=== PATIENT | female | born 1950 | race African-American/Black ===

== ENCOUNTER 2017-02-11 12:17 | Inpatient (IN) ==
[2017-02-11] MEDS ORDERED: ONDANSETRON 4 MG/2 ML VIAL IV STA ×2 (13:41→19:01)
[2017-02-11] MEDS ORDERED: ONDANSETRON 4 MG/2 ML VIAL ONE ×2 (13:42→17:49)
[2017-02-11] MEDS ORDERED: PANTOPRAZOLE 40 MG VIAL IV STA (13:43)
--- NOTE | 2017-02-11 13:46 | XRay Report ---
XR abdomen 2V Indication: Hematemesis Comparison: None available Findings: No free fluid or free air seen. Increased stool volume is seen in the colon. Clips are present in the abdomen from previous surgery. The bowel gas pattern otherwise appears within normal limits. No abnormal calcifications are present. No other abnormality is identified. Impression: Increased stool volume in the colon, may indicate constipation. PROCEDURE INTERPRETED AT [facility] DEPARTMENT OF RADIOLOGY Final Report Signed by: Dr. Peterson Quesada
[2017-02-11] MEDS ORDERED: PANTOPRAZOLE 40 MG VIAL IV ONE (14:36)
[2017-02-11 14:39] LABS: Basophils % 0.1 % (0.0-0.8); Eosinophils % 0.2 % (0.00-10.9); Hematocrit 42.5 VOL% (35.7-47.0); Hemoglobin 13.7 GM/DL (12.0-16.0); Immature Granulocytes % 0.6 %; Immature Granulocytes Absolute 0.08 #; Lymphocytes # 1.1 10*3/uL (1.4-4.0); Lymphocytes % 7.4 % (21.3-54.2); Mean Corpuscular HGB Conc 32.2 GM/DL (32-36); Mean Corpuscular Hemoglobin 26 PG (27-34); Mean Corpuscular Volume 81.7 FL (87-102); Mean Platelet Volume 9.8 FL (9.6-12.0); Monocytes # 0.7 10*3/uL (0.11-0.8); Monocytes % 4.8 % (1.7-12.7); Neutrophils # 12.6 10*3/uL (1.4-7.4); Neutrophils % 86.9 % (38.7-73.9); Platelet Count 381 T/CUMM (130-400); Red Cell Distribution Width 15.1 % (9.3-17.3); White Blood Count 14.5 T/CUMM (4-12)
[2017-02-11 14:47] LABS: PT Patient Result 10.2 SECS
[2017-02-11 15:15] LABS: Albumin 3.4 G/DL (3.4-5.0); Bilirubin,Total 0.6 MG/DL (0.2-1.0); Calcium 9.4 MG/DL (8.5-10.1); Osmolality,Calculated 279.4 MOS/KG (273-304); Potassium 4.1 MMOL/L (3.5-5.1); Total Protein 9.4 G/DL (6.4-8.3)
--- NOTE | 2017-02-11 16:55 | Emergency Department Note ---
Fiona Eddy Mantricia, am scribing for, and in the presence of, Rivas Greene M.D. 12:48. Jc Eddy Howard T, M.D., personally performed the services described in this documentation, ascribed by Cesar Jaimes in my presence, and it is both accurate and complete [id number] . Arrival - Arrival Chief Complaint: Nausea/Vomiting/Diarrhea Stated Complaint: Gi bleed ED Nursing Triage Note: Brought in by EMS-sent from [facility] for further evaluation of vomiting coffee ground emesis-onset 1025 this morning. Mode of Arrival: Stretcher Limitations: Language Barrier Source: RN Notes Reviewed Time Seen by Provider: 02/11/17 12:40 - History of Present Illness HPI Narrative: Pt is a 66 y/o black female arriving to ED by EMS with c/o vomiting that onset 1030 this morning. Pt was sent from [facility] for further evaluation of vomiting coffee ground emesis. She is unable to speak but is able to mumble the abdominal area that is TTP. Onset (ago): hour(s) Consistency: constant Severity: mild Severity scale (1-10): 5 Date of Last Menstrual Period: sabino Allergies/Adverse Reactions: Allergies Allergy/AdvReac Type Severity Reaction Status Date / Time No Known Allergies Allergy Verified 02/11/17 12:27 Home Medications: Home Medications Medication Instructions Recorded Confirmed Type Sertraline [Zoloft] 50 mg PEG DAILY 04/18/15 02/11/17 History amLODIPine [Norvasc] 10 mg PEG DAILY tablet 08/23/15 02/11/17 Rx Magnesium Hydroxide Susp [Milk of 30 ml PEG DAILY PRN 11/27/16 02/11/17 History Magnesia] Scopolamine 1.5 mg Patch 1 patch TRANSDERM Q3DAY 11/27/16 02/11/17 History [Transderm Scop 1.5 mg/72 hr Patch] Aspirin Chew Tab 81 mg PEG DAILY 02/11/17 02/11/17 History cloNIDine TAB [Catapres Tab] 0.3 mg PEG TID 02/11/17 02/11/17 History Review of System - Review of System 12 point system: reviewed and no additional remarkable complaints except as stated - Review of System Constitutional: Absent: chills, diaphoresis, fever Eyes: Absent: discharge, pain Head/Ears/Nose/Throat: Absent: earache, epistaxis Respiratory: Absent: cough, respiratory distress, wheezing Cardiovascular: Absent: chest pain, palpitations, dyspnea on exertion Gastrointestinal: Present: abdominal pain, nausea, vomiting, diarrhea Genitourinary female: Absent: abnormal menses Musculoskeletal: Absent: arm pain, back pain, leg pain, neck pain Skin: Absent: rash, lesions Neurological: Absent: headache, weakness Medical,Surgical,& Family Hx - Medical History Cardio: History of: Hypertension Psychological: History of: Depression Neurology: History of: Cerebrovascular Accident (CVA 1997,2002,2009), Vertigo No history of: Seizures HEENT: History of: Eye Problem (RIGHT EYE LID DROOP), Dental Problems (BLEEDING GUMS,HALLOTOSIS) Endocrine: History of: Dyslipidemia Rheumatology: History of;: Rheumatoid Arthritis Respiratory: History of: Respiratory Problems (SNORES) Genitourinary: History of: Recurring Urinary Tract Infections, Problems ( OCASSIONAL INCONTINENT OF URINE) Gastrointestinal: History of: GI Problems (PEG FOR DYSPHAGIA UNTIL 2010) - Surgical History Thoracic Surgeries: Patient denies;: Kidney (Renal Surgery), Lithotripsy, Nephrectomy Neurologic Surgeries: Patient denies: Neurologic Surgery Abdominal Surgeries: Surgical HX of: Abdominal Surgery, Cholecystectomy Reproductive Surgeries: Patient denies;: Cystoscopy, Genitourinary Surgery - Family History Family History: Reports;: Family Cancer, Family Diabetes, Family Heart Disease, Family Hypertension, Family Stroke - Social History Smoking Status: Never smoker Frequency of Alcohol Use: None Type of Drug Use: None Exam Vital Signs: Vital Signs Temperature 99.0 F 02/11/17 12:22 Pulse Rate 118 H 02/11/17 16:00 Respiratory Rate 20 02/11/17 16:00 Blood Pressure 176/93 02/11/17 16:00 O2 Sat by Pulse Oximetry 100 02/11/17 16:00 - General General appearance: alert, in no apparent distress - Head Head exam: Present: atraumatic, normocephalic, normal inspection - Eye Eye exam: Present: normal appearance, PERRL, EOMI - ENT ENT exam: Present: normal exam, normal oropharynx, mucous membranes moist, TM's normal bilaterally, normal external ear exam - Neck Neck exam: Present: normal inspection, full ROM, trachea midline. Absent: tenderness - Chest Chest inspection: Present: normal inspection, symmetric chest wall rise. Absent : tenderness - Respiratory Respiratory exam: Present: normal lung sounds bilaterally - Cardiovascular Cardiovascular exam: Present: regular rate, normal rhythm, normal heart sounds - Abdominal Exam Abdominal exam: Present: soft, tenderness, normal bowel sounds. Absent: distention, guarding, rebound - Extremities Exam Extremities exam: Present: normal inspection, full ROM, normal capillary refill. Absent: tenderness, pedal edema - Back Exam Back exam: Present: normal inspection, full ROM. Absent: tenderness - Neurological Exam Neurological exam: Present: alert, oriented X3, CN II-XII intact, normal gait - Psychiatric Psychiatric exam: Present: normal affect, normal mood - Skin Skin exam: Present: warm, dry, intact, normal color Course Course Narrative: Medical decision making: Patient appears stable with stable H&H however with history of probable blood in emesis we will recommend admission overnight with GI evaluation in the morning. Contacted hospitalist for evaluation Results - Labs CBC & BMP: 02/11/17 14:22 02/11/17 14:22 Lab Results: I have reviewed the patients labs - Impressions INR 1.0 - Diagnostic Findings Procedure: Abdominal x-ray: report reviewed by me (no acute) Disposition Clinical Impression: Upper gastrointestinal hemorrhage, Coffee ground emesis Case discussed with: patient, patient's family Disposition: Still a Patient Condition: Stable Time of Disposition: 16:54
[2017-02-11] MEDS ORDERED: ONDANSETRON 4 MG/2 ML VIAL IV PRN (17:30)
[2017-02-11] MEDS ORDERED: ACETAMINOPHEN 325 MG TABLET PO PRN (17:30)
--- NOTE | 2017-02-11 17:45 | Hospitalist History & Physical ---
Assessment and Plan (1) Coffee ground emesis Status: Acute Assessment and plan: Admit to monitored bed. Consult GI. Keep npo. IVF hydration. Monitor patient status. Current Visit: Yes (2) Hypertension Status: Chronic Assessment and plan: Home medications restarted. Routine vitals ordered. Current Visit: No (3) History of stroke Status: Chronic Assessment and plan: Pt. is nonverbal due to strokes. Completely bedbound. Current Visit: No (4) Debility Status: Acute Current Visit: No (5) Upper gastrointestinal hemorrhage Status: Acute Current Visit: Yes History of Present Illness Chief complaint: gi bleeding History of present illness: Ms. John is a 66 year old black female with a history of several strokes, renal issues, electrolyte imbalances, and hypertension that was brought in via EMS from [facility] for evaluation of nausea and coffee ground emesis. Pt. is nonverbal but daughter is present at bedside. She states senior care notified her of her mom's condition. Pt. is able to nod yes or no and confirms pain to abdominal. In ED, pt noted to have WBC of 14.5, CXR and UA pending. Pt. will be admitted to the hospitalist service for further evaluation and treatment. This patient's care was discussed with Dr. Quan. Home Medications Medication Instructions Recorded Confirmed Type Sertraline [Zoloft] 50 mg PEG DAILY 04/18/15 02/11/17 History amLODIPine [Norvasc] 10 mg PEG DAILY tablet 08/23/15 02/11/17 Rx Magnesium Hydroxide Susp [Milk of 30 ml PEG DAILY PRN 11/27/16 02/11/17 History Magnesia] Scopolamine 1.5 mg Patch 1 patch TRANSDERM Q3DAY 11/27/16 02/11/17 History [Transderm Scop 1.5 mg/72 hr Patch] Aspirin Chew Tab 81 mg PEG DAILY 02/11/17 02/11/17 History cloNIDine TAB [Catapres Tab] 0.3 mg PEG TID 02/11/17 02/11/17 History Allergies Allergy/AdvReac Type Severity Reaction Status Date / Time No Known Allergies Allergy Verified 02/11/17 12:27 Medical,Surgical,& Family Hx - Medical History Cardio: History of: Hypertension Psychological: History of: Depression Neurology: History of: Cerebrovascular Accident (CVA 1997,2002,2009), Vertigo No history of: Seizures HEENT: History of: Eye Problem (RIGHT EYE LID DROOP), Dental Problems (BLEEDING GUMS,HALLOTOSIS) Endocrine: History of: Dyslipidemia Rheumatology: History of;: Rheumatoid Arthritis Respiratory: History of: Respiratory Problems (SNORES) Genitourinary: History of: Recurring Urinary Tract Infections, Problems ( OCASSIONAL INCONTINENT OF URINE) Gastrointestinal: History of: GI Problems (PEG FOR DYSPHAGIA UNTIL 2010) - Surgical History Thoracic Surgeries: Patient denies;: Kidney (Renal Surgery), Lithotripsy, Nephrectomy Neurologic Surgeries: Patient denies: Neurologic Surgery Abdominal Surgeries: Surgical HX of: Abdominal Surgery, Cholecystectomy Reproductive Surgeries: Patient denies;: Cystoscopy, Genitourinary Surgery - Family History Family History: Reports;: Family Cancer, Family Diabetes, Family Heart Disease, Family Hypertension, Family Stroke - Social History Smoking Status: Never smoker Frequency of Alcohol Use: None Type of Drug Use: None Lives With:: senior care Functional capacity: bed bound ROS unobtainable: other (Pt. is nonverbal) - Gastrointestinal Gastrointestinal: Present: abdominal pain (facial expressions) Exam - Constitutional Vitals: Period Temp Pulse Resp BP Sys/Shepard Pulse Ox Last 24 Hr 99.0 F-99.0 F 108-128 18-22 127-197/90-101 99-100 General appearance: no acute distress, over weight - Head Head exam: Present: normal inspection, normocephalic - Eye Eye exam: Present: EOMI. Absent: periorbital swelling Pupils: Present: PAZ. Absent: dilated - Respiratory Respiratory exam: Present: rhonchi - Cardiovascular Cardiovascular exam: Present: tachycardia - GI/Abdominal GI/Abdominal exam: Present: normal bowel sounds, tenderness, other (peg tube) - Extremities Exam Extremities exam: Present: normal capillary refill. Absent: full ROM, edema - Neurological Exam Neurological exam: Present: alert, motor sensory deficit - Psychiatric Psychiatric exam: Present: normal affect, normal mood - Skin Skin exam: Present: normal color, warm, dry Results - Labs CBC & BMP: 02/11/17 14:22 02/11/17 14:22 Lab Results: I have reviewed the past 24 hour labs
[2017-02-11] MEDS: PANTOPRAZOLE 40 MG VIAL IV SCH (20:56)
[2017-02-11] MEDS: DEXTROSE 5% NACL 0.9% 1,000 ML IV SCH (21:19)
[2017-02-12 00:59] LABS: Apearance,Urine Slightly Hazy (Clear); Bilirubin,Urine Negative (Negative); Blood, Urine Negative (Negative); Glucose,Urine (UA) Negative (Negative); Ketones,Urine Negative (Negative); Mucus,Urine Occasional /LPF (Occasional); Nitrite,Urine Negative (Negative); Protein,Urine 30 MG/DL; RBC,Urine 1 /HPF (0-4); Urine Color Yellow (Yellow); Urine Urobilinogen < 2.0 EU/DL (0.2-1.0); WBC,Urine 2 /HPF (0-6)
[2017-02-12 06:09] LABS: Basophils % 0.2 % (0.0-0.8); Eosinophils # 0.1 10*3/uL (0.0-0.87); Eosinophils % 1.2 % (0.00-10.9); Hematocrit 34.2 VOL% (35.7-47.0); Immature Granulocytes % 0.5 %; Immature Granulocytes Absolute 0.04 #; Lymphocytes # 2.4 10*3/uL (1.4-4.0); Lymphocytes % 26.7 % (21.3-54.2); Mean Corpuscular HGB Conc 31.6 GM/DL (32-36); Mean Corpuscular Hemoglobin 26 PG (27-34); Mean Corpuscular Volume 82.8 FL (87-102); Mean Platelet Volume 10.2 FL (9.6-12.0); Monocytes # 0.9 10*3/uL (0.11-0.8); Monocytes % 9.9 % (1.7-12.7); Neutrophils # 5.4 10*3/uL (1.4-7.4); Neutrophils % 61.5 % (38.7-73.9); Platelet Count 373 T/CUMM (130-400); Red Cell Distribution Width 15.4 % (9.3-17.3)
[2017-02-12 06:11] LABS: Hemoglobin 10.8 GM/DL (12.0-16.0); Red Blood Count 4.13 MC/CUMM (3.8-5.5); White Blood Count 8.8 T/CUMM (4-12)
[2017-02-12 06:27] LABS: Risk Ratio 2.47; VLDL CHOLESTEROL 13.2 MG/DL
--- NOTE | 2017-02-12 06:31 | XRay Report ---
History: Pneumonia Date: 02/11/2017 Study: Chest x-ray single view portable Comparison exam: April 21, 2015 The cardiomediastinal silhouette is unremarkable. The pulmonary vasculature is not engorged. There is no pleural effusion. There is some strandy subsegmental atelectasis in the lung bases. There is mild thoracic spondylosis. Surgical clips overlie the right upper abdomen, suggesting prior cholecystectomy. Impression: Mild platelike atelectasis in the lung bases PROCEDURE INTERPRETED AT [facility] DEPARTMENT OF RADIOLOGY Final Report Signed by: Dr. Berta Bruno
[2017-02-12 06:35] LABS: Calcium 8.8 MG/DL (8.5-10.1); Osmolality,Calculated 281.3 MOS/KG (273-304); Potassium 4.7 MMOL/L (3.5-5.1); Thyroid Stimulating Hormone 0.531 uIU/ml (0.358-3.74)
--- NOTE | 2017-02-12 07:39 | EKG Report ---
Stationary ECG Study [facility] Test Date: 02/12/2017 7:24:41 AM Pat Name: SHANI ESTEVEZ Department: Room: 524 Gender: F [employer] Work[employer]: : 1950 Requested by: Nash Mcgraw Order Number: [id number] Reading MD: MADISON MONTEJO Intervals [place] Rate: 65 P: 60 [place]: 154 QRS: 28 QRSD: 70 T: 49 QT: 405 QTc: 416 Interpretive Statements SINUS RHYTHM Electronically Signed On 02-12-17 16:59:27 CDT by MADISON MONTEJO [email or web address]
[2017-02-12] MEDS: SERTRALINE 50 MG TABLET PEG SCH (08:11)
[2017-02-12] MEDS: PANTOPRAZOLE 40 MG VIAL IV SCH ×2 (08:11→21:20)
[2017-02-12] MEDS: amLODIPine 10 MG TABLET PEG SCH (08:11)
--- NOTE | 2017-02-12 09:03 | Hospitalist Progress Note ---
<Jayro Mayer - Last Filed: 02/12/17 09:06> Assessment and Plan (1) Coffee ground emesis Status: Acute Current Visit: Yes (2) Upper gastrointestinal hemorrhage Status: Acute Assessment and plan: No further episodes of coffee-ground emesis noted; will keep NPO; awiting GI evaluation. Current Visit: Yes (3) Acute kidney injury Status: Acute Assessment and plan: BUN/Creatinine normalized at 15/1.10. Current Visit: No (4) Hypernatremia Status: Acute Assessment and plan: Sodium level normalized at 141; will continue to monitor. Current Visit: No Hospitalist: Subjective Interval history: Patient seen and examined; no significant overnight events noted. No further episodes of coffee ground emesis noted. Awaiting GI consult. Exam - Constitutional Vitals: Period Temp Pulse Resp BP Sys/Shepard Pulse Ox Last 24 Hr 97.7 F-100.1 F 75-123 16-22 117-169/59-108 96-100 General appearance: normal weight, no acute distress - Head Head exam: Present: normal inspection, normocephalic, atraumatic - Eye Eye exam: Present: EOMI. Absent: conjunctival injection Pupils: Present: PAZ, normal accommodation - ENT ENT exam: Present: normal exam, normal external ear exam, normal oropharynx - Neck Neck exam: Absent: lymphadenopathy, meningismus, tenderness, thyromegaly - Respiratory Respiratory exam: Present: wheezes - Cardiovascular Cardiovascular exam: Present: regular rate and rhythm. Absent: diastolic murmur , gallop, JVD, rubs, systolic murmur, tachycardia - GI/Abdominal GI/Abdominal exam: Present: normal bowel sounds, soft, other (PEG tube in place) - Extremities Exam Extremities exam: Present: edema (Trace) - Back Exam Back exam: Present: normal inspection - Neurological Exam Neurological exam: Present: alert, altered - Psychiatric Psychiatric exam: Present: normal affect, normal mood - Skin Skin exam: Present: normal color, warm, dry Results - Labs CBC & BMP: 02/12/17 05:09 02/12/17 05:09 Lab Results: I have reviewed the past 24 hour labs <Jillian Michel - Last Filed: 02/12/17 12:59> Hospitalist: Subjective Interval history: Patient was lying in bed snoring away. Exam - Constitutional Vitals: Period Temp Pulse Resp BP Sys/Shepard Pulse Ox Last 24 Hr 97.0 F-100.1 F 69-123 16-22 103-169/59-108 96-100 Results - Labs CBC & BMP: 02/12/17 05:09 02/12/17 05:09
[2017-02-12] MEDS: DEXTROSE 5% NACL 0.9% 1,000 ML IV SCH ×2 (11:06→23:43)
[2017-02-12] MEDS ORDERED: GLUCAGON 1 MG VIAL IM PRN (13:25)
[2017-02-12] MEDS ORDERED: DEXTROSE 50% 25 GM/50 ML VIAL IV PRN (13:25)
--- NOTE | 2017-02-12 14:36 | Gastrointestinal Consult Note ---
Assessment and Plan (1) Coffee ground emesis Status: Acute Assessment and plan: This patient has a recent history of coffee-ground emesis which I suspect may be due to either Yulia-Wallace tear, or contralateral ulceration of the stomach due to the recent inflatable-bulb type PEG tube placed back in November. Peptic ulcer disease and gastritis remain in the differential as does esophagitis and duodenitis. Will assess with upper endoscopy tomorrow if the family agrees. Risks of the above procedure include and are not limited to: Bleeding, infection, perforation, cardiac and pulmonary compromise. In the meantime we will cover this patient with Protonix twice daily. We can start to reuse the PEG tube at this time given the lack of heme noted on flushing of the stomach. The patient does need to be n.p.o. after midnight tonight for upper endoscopy tomorrow. Further recommendations post upper endoscopy. Current Visit: Yes (2) Acute posthemorrhagic anemia Status: Acute Assessment and plan: Patient's hematocrit has certainly dropped between 42% and 34%-- certainly some of this is due to correction of her dehydration. Hopefully we will be able to identify an upper GI bleeding source during the upper endoscopy to occur tomorrow. This may business change manager by having the patient start some attempting medication versus acid blocking medication versus identification a Yulia-Wallace tear that may be spurred by a gastroenteritis. If the daughter agrees, we will schedule this for tomorrow morning at 0700. Risks and benefits were outlined above. 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 Status post multiple strokes leading to difficulty with swallowing. She is continue needing this feeding tube since 2014. If the PEG tube presently requires replacement we will strongly consider placing another "mushroom" type PEG tube which will certainly last longer than the current time she has now which tends to have a life of about 6 months, before replacement needed. Current Visit: No History of Present Illness Chief complaint: Coffee-ground emesis and drop in hematocrit from 42 -->34% History of present illness: Ms. John is a 66 year old female who has a history of multiple strokes and a scalp hematoma previously seen after her INR became supratherapeutic and she had some dysphasia with need for PEG tube placement back on 7/24/15. The PEG tube was placed without difficulty at that time during reversal of her anticoagulation and the patient has had several others since that time. The most recent of these has been replaced on 11/27/16 after the PEG tube degraded. This PEG tube has done well but was the inflatable type and the patient is admitted at this time with coffee-ground emesis and a drop in her hematocrit from 42.5% down to 34.2% between 02/11/17 and now. Nursing staff states that the stomach was flushed with 60 mls of water and no gross evidence of heme was noted in the stomach at this time. The patient had been taking some aspirin but this apparently is her only anticoagulant. She is nonconversant and does not answer questions, her daughter is not at the bedside. Hematemesis have been [facility] at the [facility] prior to her being sent over from their institution. White blood cell count has improved from 14.5-8.8 from yesterday at 12 PM to present recheck at 8 AM. Her INR was noted to be 1.0 this admission. She is a DNR. She can resume tube feedings at this time, we will perform upper endoscopy to look for source for the hematemesis tomorrow. We may need to replace the PEG tube with a non-balloon type if contralateral compression ulceration is noted in the stomach. We do not have any additional history Home Medications Medication Instructions Recorded Confirmed Type Sertraline [Zoloft] 50 mg PEG DAILY 04/18/15 02/12/17 History amLODIPine [Norvasc] 10 mg PEG DAILY tablet 08/23/15 02/12/17 Rx Magnesium Hydroxide Susp [Milk of 30 ml PEG DAILY PRN 11/27/16 02/12/17 History Magnesia] Scopolamine 1.5 mg Patch 1 patch TRANSDERM Q3DAY 11/27/16 02/12/17 History [Transderm Scop 1.5 mg/72 hr Patch] Aspirin Chew Tab 81 mg PEG DAILY 02/11/17 02/12/17 History cloNIDine TAB [Catapres Tab] 0.3 mg PEG TID 02/11/17 02/12/17 History Allergies Allergy/AdvReac Type Severity Reaction Status Date / Time No Known Allergies Allergy Verified 02/11/17 12:27 Medical,Surgical,& Family Hx - Medical History Cardio: History of: Hypertension Psychological: History of: Depression Neurology: History of: Cerebrovascular Accident (CVA 1997,2002,2009), Vertigo No history of: Seizures HEENT: History of: Eye Problem (RIGHT EYE LID DROOP), Dental Problems (BLEEDING GUMS,HALLOTOSIS) Endocrine: History of: Dyslipidemia Rheumatology: History of;: Rheumatoid Arthritis Respiratory: History of: Respiratory Problems (SNORES) Genitourinary: History of: Recurring Urinary Tract Infections, Problems ( OCASSIONAL INCONTINENT OF URINE) Gastrointestinal: History of: GI Problems (PEG FOR DYSPHAGIA UNTIL 2010) - Surgical History Thoracic Surgeries: Patient denies;: Kidney (Renal Surgery), Lithotripsy, Nephrectomy Neurologic Surgeries: Patient denies: Neurologic Surgery Abdominal Surgeries: Surgical HX of: Abdominal Surgery, Cholecystectomy Reproductive Surgeries: Patient denies;: Cystoscopy, Genitourinary Surgery - Family History Family History: Reports;: Family Cancer, Family Diabetes, Family Heart Disease, Family Hypertension, Family Stroke - Social History Smoking Status: Never smoker Frequency of Alcohol Use: None Type of Drug Use: None ROS unobtainable: other (Post stroke aphasia) Exam - Constitutional Vitals: Period Temp Pulse Resp BP Sys/Shepard Pulse Ox Last 24 Hr 97.0 F-100.1 F 69-123 16-22 103-169/59-108 96-100 General appearance: over weight Exam: Constitutional: Well-developed, well-nourished, somnolent but in no acute distress Head and face: Head: Normocephalic atraumatic Eyes: Conjunctiva without injection, no gross scleral icterus, pupils equal and round bilaterally Ears: Unable to completely assess, the patient does react to loud noises Nose: External appearance is normal, nares patent Mouth: Oral mucous membranes somewhat dry and tacky with dental caries but no gross erosion Neck: Normal appearance, no masses or tenderness, trachea midline Thyroid: Gland midline and appropriate size for age Respiratory: Normal respiratory effort, clear to auscultation without wheezes, rhonchi or rales Cardiovascular: Regular rate and rhythm, normal S1, S2, the exam is without rubs, murmurs or gallops. Gastrointestinal: PEG tube noted in left upper abdomen, mild nonfocal tenderness to deep palpation, PEG tube site does not have any erythema, spends well does not appear to have any drainage stomach tone normal without rigidity or guarding, no masses present, no hepatomegaly, no spleen tip felt. No rectal exam obtained. Lymphatic: Neck without adenopathy, axilla without lymphadenopathy present Musculoskeletal: Right and left lower extremities with muscular wasting Skin and subcutaneous tissue: No rashes or ulcerations noted except at the sacrum, normal skin turgor, digits and nails without clubbing/cyanosis/ deformities. Neurologic: Patient somnolent and does not answer questions or follow commands. No further examination could be done. Psychiatric: No further examination could be done. Results - Labs CBC & BMP: 02/12/17 05:09 02/12/17 05:09
[2017-02-12] MEDS ORDERED: SODIUM CHLORIDE 0.9% 250 ML IV ONE (15:37)
[2017-02-13 06:42] LABS: Basophils % 0.5 % (0.0-0.8); Eosinophils # 0.3 10*3/uL (0.0-0.87); Eosinophils % 4.9 % (0.00-10.9); Hematocrit 37.5 VOL% (35.7-47.0); Hemoglobin 11.4 GM/DL (12.0-16.0); Immature Granulocytes % 0.3 %; Immature Granulocytes Absolute 0.02 #; Lymphocytes # 2.3 10*3/uL (1.4-4.0); Lymphocytes % 38.7 % (21.3-54.2); Mean Corpuscular HGB Conc 30.4 GM/DL (32-36); Mean Corpuscular Hemoglobin 26 PG (27-34); Mean Corpuscular Volume 84.7 FL (87-102); Mean Platelet Volume 10.2 FL (9.6-12.0); Monocytes # 0.6 10*3/uL (0.11-0.8); Monocytes % 9.6 % (1.7-12.7); Neutrophils # 2.7 10*3/uL (1.4-7.4); Platelet Count 325 T/CUMM (130-400); Red Blood Count 4.43 MC/CUMM (3.8-5.5)
[2017-02-13 07:07] LABS: Calcium 8.6 MG/DL (8.5-10.1); Osmolality,Calculated 278.4 MOS/KG (273-304); Potassium 4.5 MMOL/L (3.5-5.1)
[2017-02-13 07:24] LABS: Magnesium 1.9 MG/DL (1.8-2.4); Phosphorous 3.1 MG/DL (2.5-4.9)
[2017-02-13] MEDS ORDERED: LIDOCAINE 2% 5 ML VIAL ONE (08:35)
[2017-02-13] MEDS ORDERED: PROPOFOL 200 MG/20 ML VIAL IV ONE (08:35)
--- NOTE | 2017-02-13 08:42 | Anesthesia Post-Op ---
Anesthesia Post OP - Post Ansesthetic Evaluation Patient seen in post op: Yes Resp: within normal limits CV: within normal limits Mental: within normal limits Temp: within normal limits Hoyc-Bx-Nrsaqingm: within normal limits Nausea and Vomiting: within normal limits Pain: within normal limits
--- NOTE | 2017-02-13 08:42 | Operative Note ---
Date of procedure: 02/13/17 Pre-op diagnosis: Hematemesis, hematocrit from 42% to 34%, PEG Post-op diagnosis: other (This patient has a 7 cm long segment of erosive esophagitis noted in the distal esophagus, LA class C. Patient has a 5 cm hiatal hernia, mild punctate erosions were noted near the pyloric channel in the antrum as well. A scant amount of retained fluid was noted in the stomach, gastroparesis may be playing a minimal role here.) Procedure: PROCEDURE: Esophagogastroduodenoscopy (EGD) REFERRING PHYSICIAN: Jillian Michel MD INDICATIONS: Hematemesis with drop in hematocrit from 42-34% now up to 37% spontaneously in a patient with a PEG tube the prior H&P was reviewed and interrim changes are as noted: No change from GI consultation yesterday ENDOSCOPIST: Kunal Robins MD ENDOSCOPE: [employer] Video 100 System upper endoscope ASA CLASS: 3 EXAM: CV: regular rate and rhythm respiratory: Clear without wheezes abdominal: active bowel sounds MEDICATION: Per nursing anesthesia protocol, see their notes PROCEDURE: After discussion of the potential risks and benefits of upper endoscopy, the informed consent was obtained. The patient was then placed in the left lateral decubitus position where sedation was achieved as noted above. Esophageal intubation was performed without difficulty, and the endoscope was advanced through the esophagus, stomach and duodenum. A slow withdrawal was then performed with retroflexion in the stomach for careful inspection of the incisura angularis, fundus and cardia. The scope was then returned to a neutral position and withdrawn through the esophagus. The patient tolerated the procedure well and without complication. BIOPSIES: None obtained PHOTOGRAPHS: Obtained FINDINGS: Hypopharynx and Larynx: Normal Esohagoscopy Upper and middle thirds: Normal Lower third LA class C erosive esophagitis between 28 and 35 cm Esophogastric junctions: LA class C erosive esophagitis between 28 and 35 cm Gastroscopy: Cardia/Fundus: 5 cm hiatal hernia noted Body: The PEG tube balloon was noted here there really was no erosive changes directly across from it from pressure necrosis as was suspected , there were some erosions noted down further in the antrum, small pool of retrained green fluid noted here as well. Antrum and pylorus a few small punctate erosions noted here, some mild gastritis thought to be another source of blood loss Duodenoscopy: Bulb Normal Second and third portions: Normal IMPRESSION: This patient has a 7 cm long segment of erosive esophagitis noted in the distal esophagus, LA class C. Patient has a 5 cm hiatal hernia, mild punctate erosions were noted near the pyloric channel in the antrum as well. A scant amount of retained fluid was noted in the stomach, gastroparesis may be playing a minimal role here. RECOMMENDATIONS: Follow up for biopsy results in 1-2 weeks by phone [phone] Continue anti-gastroesophageal reflux measures (avoid carbonated and acidic beverages, avoid eating within 2 hours of bedtime, avoid tight fitting clothing , and elevate the front bed posts 6 inches prior to sleeping. Suggest use of twice daily PPIs, prescription written for Prevacid Solutab's 30 mg twice daily to be used with the PEG tube, from my standpoint the patient can be discharged at this time. Nursing staff has not detected any residuals. If high residuals are noted at the half-way would suggest sending the patient back for gastric emptying study. Kunal Robins MD COPY TO: Jillian Michel MD Anesthesia: MAC Surgeon / Physician: Kunal Robins Estimated blood loss: minimal Specimens: none sent Condition: stable Disposition: post procedure unit ([facility]) Results - Labs CBC & BMP: 02/13/17 06:01 02/13/17 06:01 Discharge Plan - Discharge Medications No Action Sertraline [Zoloft] 50 mg PEG DAILY amLODIPine [Norvasc] 10 mg PEG DAILY tablet Scopolamine 1.5 mg Patch [Transderm Scop 1.5 mg/72 hr Patch] 1 patch TRANSDERM Q3DAY Magnesium Hydroxide Susp [Milk of Magnesia] 30 ml PEG DAILY PRN PRN Reason: Constipation Aspirin Chew Tab 81 mg PEG DAILY cloNIDine TAB [Catapres Tab] 0.3 mg PEG TID - Follow Up or Referral - Forms/Instructions
--- NOTE | 2017-02-13 08:51 | Gastrointestinal Progress Note ---
Assessment and Plan (1) Coffee ground emesis Status: Acute Assessment and plan: This patient has a recent history of coffee-ground emesis which I suspect may be due to either Yulia-Wallace tear, or contralateral ulceration of the stomach due to the recent inflatable-bulb type PEG tube placed back in November. Peptic ulcer disease and gastritis remain in the differential as does esophagitis and duodenitis. Will assess with upper endoscopy tomorrow if the family agrees. Risks of the above procedure include and are not limited to: Bleeding, infection, perforation, cardiac and pulmonary compromise. In the meantime we will cover this patient with Protonix twice daily. We can start to reuse the PEG tube at this time given the lack of heme noted on flushing of the stomach. The patient does need to be n.p.o. after midnight tonight for upper endoscopy tomorrow. Further recommendations post upper endoscopy. 02/13/17--Findings of upper endoscopy include the following: This patient has a 7 cm long segment of erosive esophagitis noted in the distal esophagus, LA class C. Patient has a 5 cm hiatal hernia, mild punctate erosions were noted near the pyloric channel in the antrum as well. A scant amount of retained fluid was noted in the stomach, gastroparesis may be playing a minimal role here. I have written prescriptions to [facility] Solutab's via the PEG tube twice daily for 1 month and then once a day after that. This should protect her esophagus and stomach against the current acid load. In my opinion she can be discharged from the hospital at this time. She does not have enough residuals to consider doing gastric emptying study yet but if these issues become recurrent we may consider this for the future. The PEG tube did not need to be changed out there was not contralateral wall ulceration noted across from the bulb. Current Visit: Yes (2) Acute posthemorrhagic anemia Status: Acute Assessment and plan: Patient's hematocrit has certainly dropped between 42% and 34%-- certainly some of this is due to correction of her dehydration. Hopefully we will be able to identify an upper GI bleeding source during the upper endoscopy to occur tomorrow. This may mold changer by having the patient start some attempting medication versus acid blocking medication versus identification a Yulia-Wallace tear that may be spurred by a gastroenteritis. If the daughter agrees, we will schedule this for tomorrow morning at 0700. Risks and benefits were outlined above. 02/13/17--The patient's hematocrit improved to 37% spontaneously. She is safe to return [facility] the [facility] at this time in my opinion. Prescription for Prevacid has been written left on the front of the chart. 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 Status post multiple strokes leading to difficulty with swallowing. She is continue needing this feeding tube since 2014. If the PEG tube presently requires replacement we will strongly consider placing another "mushroom" type PEG tube which will certainly last longer than the current time she has now which tends to have a life of about 6 months, before replacement needed. 02/13/17--this patient will continue to need the PEG tube as her source of nutrition, she continues to have dysphagia from her CVA that will require ongoing alternate feeding routes for nutrition and hydration medication needs. Current Visit: No Gastroenterology - PN: Subj Interval history: No new complaints, the patient appears to be stable. Her hematocrit actually increased up to 37% spontaneously. Upper endoscopy demonstrates the following: This patient has a 7 cm long segment of erosive esophagitis noted in the distal esophagus, LA class C. Patient has a 5 cm hiatal hernia, mild punctate erosions were noted near the pyloric channel in the antrum as well. A scant amount of retained fluid was noted in the stomach, gastroparesis may be playing a minimal role here. Exam (Progress Note) - Constitutional Vitals: Period Temp Pulse Resp BP Sys/Shepard Pulse Ox Last 24 Hr 96.8 F-98.6 F 49-69 18-20 101-141/56-74 94-100 General appearance: no acute distress - Head Head exam: Present: normocephalic, atraumatic - Respiratory Respiratory exam: Present: clear to auscultation bilaterally. Absent: stridor, wheezes - Cardiovascular Cardiovascular exam: Present: regular rate and rhythm - GI/Abdominal GI/Abdominal exam: Present: normal bowel sounds, distended, soft. Absent: guarding, tenderness, rebound - Extremities Exam Extremities exam: Present: edema - Neurological Exam Neurological exam: Present: altered (Somnolent) - Psychiatric Psychiatric exam: Present: flat affect Results - Labs CBC & BMP: 02/13/17 06:01 02/13/17 06:01
[2017-02-13] MEDS: amLODIPine 10 MG TABLET PEG SCH ×2 (10:02→10:03)
[2017-02-13] MEDS: PANTOPRAZOLE 40 MG VIAL IV SCH (10:02)
[2017-02-13] MEDS: SERTRALINE 50 MG TABLET PEG SCH (10:02)
[2017-02-13] MEDS: DEXTROSE 5% NACL 0.9% 1,000 ML IV SCH (11:49)
--- NOTE | 2017-02-13 12:05 | Discharge Summary ---
<Shahla Ballard - Last Filed: 02/13/17 11:59> Hospital Course - Hospital Course Hospital Course: Ms. John is a 66-year-old -[place] female with history of CVA, hypertension, bedbound patient in the senior living admitted by the hospitalist service on 02/11/2017 with coffee-ground emesis. She was kept n.p.o. with IV hydration and her status was monitored. Dr. Robins from gastroenterology was consulted and he took the patient this morning, 02/13/2017, for EGD. He found some erosive esophagitis, 5 cm hiatal hernia, mild punctate erosions noted near the pyloric channel and in the antrum wall as well. He recommended sending back to the senior living with Prevacid Solutab's via PEG tube twice daily for 1 month and then once a day after that. This will help protect her esophagus and stomach against the acid load. Her PEG tube did not need to be changed out. it was in good shape and there were no noted wall ulcerations near the bulb. He stated there was a scant amount of retained fluid noted in the stomach and gastroparesis may play a minimal role. He recommended continuing her tube feeds and to check residuals periodically. If she continues to have high residuals then he will need to see her in clinic for gastric emptying study. Patient has had no further bleeding and her H&H is stable. She can be transferred back to the senior living today. Patient's case was coordinated with Dr. Michel the hospitalist and Dr. Robins the provider relations consultant, nursing. Case coordination, chart review, and discharge paperwork took approximately 32 minutes. - Time spent with patient Time with patient DS: Greater than 30 minutes Discharge Plan - Discharge Data Disposition: Disch/Xfer to Snf - Discharge Medications New Lansoprazole Odt Tab [Prevacid Solutab] 30 mg PO BID #60 tablet Acetaminophen Tab [Tylenol Tab] 650 mg PO Q4H PRN #0 tablet PRN Reason: Fever, Headache, Mild Pain Continue Sertraline [Zoloft] 50 mg PEG DAILY amLODIPine [Norvasc] 10 mg PEG DAILY tablet Scopolamine 1.5 mg Patch [Transderm Scop 1.5 mg/72 hr Patch] 1 patch TRANSDERM Q3DAY Magnesium Hydroxide Susp [Milk of Magnesia] 30 ml PEG DAILY PRN PRN Reason: Constipation cloNIDine TAB [Catapres Tab] 0.3 mg PEG TID Discontinued Aspirin Chew Tab 81 mg PEG DAILY - Follow Up or Referral - Forms/Instructions Exam - Constitutional Vitals: Period Temp Pulse Resp BP Sys/Shepard Pulse Ox Last 24 Hr 96.8 F-98.6 F 49-58 16-20 93-141/49-74 94-100 Discharge Results Procedures and tests throughout hospitalization: Pending Orders 02/13/17 11:04 Blood Culture Stat Labs on day of discharge: Labs from last 24 hours 02/13/17 02/13/17 02/13/17 10:43 07:19 06:01 WBC RBC Hgb Hct MCV MCH MCHC RDW Plt Count MPV Neut % (Auto) Lymph % (Auto) Tillman % (Auto) Eos % (Auto) Baso % (Auto) Neut # (Auto) Lymph # (Auto) Tillman # (Auto) Eos # (Auto) Baso # (Auto) Immature Gran % Nucleated RBC % Immature Gran # Nucleated RBCs # Sodium Potassium Chloride Carbon Dioxide Anion Gap BUN Creatinine GFR Calculation BUN/Creatinine Ratio Glucose POC Glucose 95 110 H Calculated Osmolality Calcium Phosphorus 3.1 Magnesium 1.9 Prealbumin 22.0 02/13/17 02/13/17 02/12/17 06:01 06:01 21:36 WBC 6.0 D RBC 4.43 Hgb 11.4 L Hct 37.5 MCV 84.7 L MCH 26 L MCHC 30.4 L RDW 15.0 Plt Count 325 MPV 10.2 Neut % (Auto) 46.0 Lymph % (Auto) 38.7 Tillman % (Auto) 9.6 Eos % (Auto) 4.9 Baso % (Auto) 0.5 Neut # (Auto) 2.7 Lymph # (Auto) 2.3 Tillman # (Auto) 0.6 Eos # (Auto) 0.3 Baso # (Auto) 0.0 Immature Gran % 0.3 Nucleated RBC % 0.0 Immature Gran # 0.02 Nucleated RBCs # 0.00 Sodium 140 Potassium 4.5 Chloride 106 Carbon Dioxide 29 Anion Gap 9.5 BUN 13 Creatinine 0.90 GFR Calculation 82 BUN/Creatinine Ratio 14.00 Glucose 96 POC Glucose 126 H Calculated Osmolality 278.4 Calcium 8.6 Phosphorus Magnesium Prealbumin 02/12/17 15:41 WBC RBC Hgb Hct MCV MCH MCHC RDW Plt Count MPV Neut % (Auto) Lymph % (Auto) Tillman % (Auto) Eos % (Auto) Baso % (Auto) Neut # (Auto) Lymph # (Auto) Tillman # (Auto) Eos # (Auto) Baso # (Auto) Immature Gran % Nucleated RBC % Immature Gran # Nucleated RBCs # Sodium Potassium Chloride Carbon Dioxide Anion Gap BUN Creatinine GFR Calculation BUN/Creatinine Ratio Glucose POC Glucose 114 H Calculated Osmolality Calcium Phosphorus Magnesium Prealbumin DS: Provider Date of admission: 02/11/17 17:28 Primary care physician: . No PCP Attending physician on admission: Silvestre Quan MD Consults: 02/11/17 20:37 Consult to Physician [CONS] Routine Comment: gi bleed Consulting Provider: Kunal Robins Person Notified: Azalia Date Notified: 02/12/17 Time Notified: 12:37 02/11/17 23:47 Consult to Dietitian [CONS] Routine Reason for Dietitian: Dietary Consult Consult Comment: tube feedings 02/12/17 12:41 Consult to Dietitian [CONS] Routine Reason for Dietitian: TF-Initiate/Manage Consult Comment: on jevity 1.5 tf at [place] 02/12/17 14:48 Consult to Anesthesiology [CONS] Routine Consulting Provider: Reason for Anesthesiology: Pre-op Clearance Discharging clinician: LUDA Rosario Expected date of discharge: 02/13/17 <Jillian Michel - Last Filed: 02/13/17 14:04> Hospital Course - Hospital Course Hospital Course: GI has recommended prevacid solutab 30mg bid, will continue to hold aspirin till PCP sees. Vitals are stable , patient can go back to the [place] today - Time spent with patient Time with patient DS: Greater than 30 minutes (Time greater than 35mins) Discharge Plan - Discharge Data Condition at Discharge: Stable Discharge Diet: advance to your usual diet - Forms/Instructions Additional Discharge Instructions: Follow with PCP in 1week, follow with GI as scheduled
[2017-02-13 16:53] VITALS: BP 140/71
[2017-02-14] MEDS ORDERED: SCOPOLAMINE 1.5 MG PATCH TRANSDERM SCH (09:00)
--- NOTE | 2017-02-21 08:10 | Physician Query Form ---
CLICK EDIT DOCUMENT TO SELECT QUERY ANSWER --> OK --> SIGN Pina Parkinson RN Clinical Director Of [employer] W) [phone] (f) [phone] [email or web address] PROVIDERS: Make your selection(s) from the choices in EACH section by typing an "x" and enter comments in the comment section. Please use your independent medical judgment in providing your response. This request does not imply that any particular answer is desired or expected. CLINICAL INDICATORS: (Providers should not edit this section) Based on documentation of "Acute coffee ground emesis" "Acute upper gastrointestinal hemorrhage" EGD showed erosive esophagitis. Based on the above, could you clarify the appropriate diagnosis, if significant , that supports the above abnormalities and additional evaluation, monitoring, and/or treatment rendered: (x ) Acute upper GI hemorrhage due to erosive esophagitis ( ) Acute upper GI hemorrhage due to other (please specify) ( ) Other, please specify: ( ) Clinically unable to determine COMMENTS: PLEASE ALSO DOCUMENT RESPONSE IN PROGRESS NOTES AND/OR DISCHARGE SUMMARY Use of terms such as suspected, likely, or probable (associated with a specific diagnosis that is being evaluated, monitored, or treated as if it exists) are acceptable and can be restated in the discharge summary if not ruled out. MTDD
== END 2017-02-13 18:31 | DRG 381 ==
LOC: EDBD → EDUNIT# → N.ED 12:17 → SUATTDRO 17:28 → N.EDINP 17:28 → N.5E 20:35
PROVIDERS: ADMIT Internal Medicine Infectious Disease; ATTEND Internal Medicine

== ENCOUNTER 2017-06-02 15:22 | Inpatient (IN) ==
[2017-06-02] MEDS ORDERED: LACTATED RINGERS 1,000 ML IV ONE ×2 (16:12→17:53)
[2017-06-02 17:07] LABS: Albumin 3.6 G/DL (3.4-5.0); Bilirubin,Total 0.7 MG/DL (0.2-1.0); Potassium 4.1 MMOL/L (3.5-5.1); Total Protein 10.2 G/DL (6.4-8.3)
[2017-06-02 17:30] LABS: Apearance,Urine Slightly Hazy (Clear); Bacteria,Urine Occasional /HPF (Few); Bilirubin,Urine Negative (Negative); Blood, Urine Negative (Negative); Glucose,Urine (UA) 50 mg/dL (Negative); Ketones,Urine 5 mg/dL (Negative); Mucus,Urine Few /LPF (Occasional); Nitrite,Urine Negative (Negative); Protein,Urine 100 MG/DL; RBC,Urine 1 /HPF (0-4); Squamous Epithelial Cell,Urine Occasional /HPF (0-10); Urine Specific Gravity 1.031 (1.001-1.035); WBC,Urine 1 /HPF (0-6)
[2017-06-02 17:33] LABS: Urine Color Dark yellow (Yellow)
[2017-06-02 17:39] LABS: Troponin I Only 0.053 NG/ML (0.00-0.045)
[2017-06-02 17:53] LABS: Basophils % 0.1 % (0.0-0.8); Hematocrit 45.1 VOL% (35.7-47.0); Hemoglobin 14.7 GM/DL (12.0-16.0); Immature Granulocytes % 0.5 %; Immature Granulocytes Absolute 0.11 #; Lymphocytes # 1.1 10*3/uL (1.4-4.0); Lymphocytes % 5.2 % (21.3-54.2); Mean Corpuscular HGB Conc 32.6 GM/DL (32-36); Mean Corpuscular Hemoglobin 27 PG (27-34); Mean Corpuscular Volume 82.3 FL (87-102); Mean Platelet Volume 10.6 FL (9.6-12.0); Monocytes # 1.4 10*3/uL (0.11-0.8); Monocytes % 6.4 % (1.7-12.7); Neutrophils # 19.1 10*3/uL (1.4-7.4); Neutrophils % 87.8 % (38.7-73.9); Platelet Count 433 T/CUMM (130-400); Red Blood Count 5.48 MC/CUMM (3.8-5.5); Red Cell Distribution Width 15.1 % (9.3-17.3); White Blood Count 21.8 T/CUMM (4-12)
[2017-06-02 18:11] LABS: Band Neutrophils 1 % (0-10); Giant Platelets Few; Hypochromasia 1+; Lymphocytes 5 % (20-55); Platelet Estimate Adequate; Segmented Neutrophils 87 % (50-85); Total Cells Counted 100
--- NOTE | 2017-06-02 18:46 | XRay Report ---
EXAM: XR abdomen 1V CLINICAL INDICATION: Abdominal Pain COMPARISON: February 11, 2017 Findings: No gastric distention. Nasogastric tube in satisfactory position. No abnormally dilated small bowel loops are identified to suggest obstruction. No free intraperitoneal air. Visceral shadows are normal. No abnormal focal soft tissue masses or calcific densities identified in the abdomen or pelvis. IMPRESSION: Nasogastric tube in satisfactory position. Nonobstructive bowel gas pattern. PROCEDURE INTERPRETED AT [facility] DEPARTMENT OF RADIOLOGY Final Report Signed by: Dre Ortiz
--- NOTE | 2017-06-02 18:47 | XRay Report ---
Portable chest June 02, 2017 at 1652 hours Indication: Shortness of breath, cough Comparison: October 02, 2008 Findings: Cardiomediastinal contours are normal. Esophageal gastric tube in satisfactory position. Lungs are clear bilaterally. No acute osseous abnormalities. Visualized upper abdomen demonstrates no acute pathology. Impression: No acute cardiopulmonary findings PROCEDURE INTERPRETED AT [facility] DEPARTMENT OF RADIOLOGY Final Report Signed by: Dre Ortiz
--- NOTE | 2017-06-02 19:31 | CT Report ---
Exam: CT abdomen and pelvis with intravenous contrast Exam date: 06/02/2017 at 1825 hours Clinical History: 67-year-old female with abdominal pain and distention Technique: Axial computed tomography images of the abdomen and pelvis with intravenous contrast. All CT scans at this facility use one or more dose reduction techniques. Automated exposure control, MA/KV adjustment per patient size (including targeted exam Square dose is matched to indication) or iterative reconstruction technique Contrast: 100 mL of Omnipaque 350 administered intravenously Comparison: No relevant prior studies Findings: Evaluation is somewhat limited secondary to patient positioning and probably placing arms away from the midline. Lower thorax: No acute pathologic findings at the lung bases Abdomen: Liver: Unremarkable Gallbladder and bile ducts: Prior cholecystectomy. No significant ductal dilatation. Pancreas: Pancreas is normal. Spleen: Spleen is normal. Adrenals: No adrenal mass. Kidneys and ureters: Kidneys are normal in morphology, size and enhancement. No hydronephrosis. No ureteral calculus. Stomach and bowel: Esophageal gastric and percutaneous gastrostomy tubes are in satisfactory position. No evidence of acute gastritis, colitis or enteritis. No bowel obstruction. Appendix: No secondary signs to suggest appendicitis. Pelvis: Bladder: Decompressed with Sotelo catheter in place. Intraluminal air is noted. Reproductive: The uterus and ovaries are surgically absent.. Abdomen and pelvis: Intraperitoneal space: No pneumoperitoneum. No free intraperitoneal fluid Bones/joints: No acute osseous abnormality Soft tissues: No mass Vasculature: No aortic aneurysm Lymph nodes: Nonspecific shotty mesenteric, inguinal and retroperitoneal lymph nodes Impression: 1. No acute findings to explain patient's symptoms. 2. Incidental findings as discussed above PROCEDURE INTERPRETED AT [facility] DEPARTMENT OF RADIOLOGY Final Report Signed by: Dre Ortiz
--- NOTE | 2017-06-02 19:40 | CT Report ---
CT chest pulmonary embolism June 02, 2017 at 1431 hours Indication: Chest pain, shortness of breath, chest and abdominal pain Comparison: None available Technique: Axial CT imaging of the chest is performed with intravenous contrast. Contrast dose is 80 cc of Omnipaque 350. Findings: Chest: No thrombus or other abnormality is identified in the pulmonary arteries or veins. The pulmonary vessel caliber is within normal limits. The heart and great vessels appear within normal limits. Mild plaquing along the arch and coronary vessels. No adenopathy. No effusions. Esophageal gastric tube in satisfactory position. Minimal bronchiectasis within the bilateral lung bases. Lungs are otherwise clear. Visualized abdomen: Grossly unremarkable. Pathologic abnormalities. Impression: 1. No evidence of pulmonary embolism 2. No acute intrathoracic abnormality. This CT exam was performed using one or more the following dose reduction techniques: Automated exposure control, adjustment of the MA and/or KV according to patient size, or use of iterative reconstruction technique. PROCEDURE INTERPRETED AT [facility] DEPARTMENT OF RADIOLOGY Final Report Signed by: Dre Ortiz
--- NOTE | 2017-06-02 20:17 | Emergency Department Note ---
Channing Eddy Manpreet, am scribing for, and in the presence of, David Judge MD 16:14 . Alfie Eddy Hans, MD, personally performed the services described in this documentation, ascribed by Yobany Snell in my presence, and it is both accurate and complete . Arrival - Arrival Chief Complaint: Nausea/Vomiting/Diarrhea Stated Complaint: VOMITING BILE WITH PEG FEEDINGS ED Nursing Triage Note: PT SENT FROM [facility] IN [place] FOR EVALUATION OF VOMITING GREEN BILE. PT HAD PEG TUBE REPLACED ON 05/25. PROJECTILE VOMITING NOTED AT TRIAGE. PT IS AT BASELINE MENTAL STATUS. Mode of Arrival: Stretcher Limitations: No Limitations Source: Family Time Seen by Provider: 06/02/17 16:03 - History of Present Illness HPI Narrative: Pt is a 67 y/o female who is sent from [facility] in [place] for further evaluation of vomiting "green bile." Pt has a Peg tube placed because she is unable to swallow due to previous CVA's affecting both sides. Pt's Peg tube came out on 04/24/17 and was brougt to the ED to replace it. Pt's 1st episode of vomiting happened February 11, 2017. Pt's primary historian is her family member who states the pt was c/o Abd pain. No other pains/complaints reported to the ED. Onset (ago): hour(s) (Earlier today) Consistency: constant Severity: moderate Allergies/Adverse Reactions: Allergies Allergy/AdvReac Type Severity Reaction Status Date / Time No Known Allergies Allergy Verified 06/02/17 15:41 Home Medications: Home Medications Medication Instructions Recorded Confirmed Type Sertraline [Zoloft] 50 mg PEG 199904/18/15 06/02/17 History Magnesium Hydroxide Susp [Milk of 30 ml PEG DAILY PRN 11/27/16 06/02/17 History Magnesia] Scopolamine 1.5 mg Patch 1 patch TRANSDERM Q3DAY 11/27/16 06/02/17 History [Transderm Scop 1.5 mg/72 hr Patch] cloNIDine TAB [Catapres Tab] 0.3 mg PEG TID 02/11/17 06/02/17 History Aspirin Chew Tab 81 mg PER TUBE 0900 05/25/17 06/02/17 History Omeprazole 20 mg PEG 0605/25/17 06/02/17 History Acetaminophen Tab [Tylenol Tab] 650 mg PEG Q4H PRN 06/02/17 06/02/17 History amLODIPine [Norvasc] 10 mg PEG 0900 06/02/17 06/02/17 History Review of System - Review of System 12 point system: reviewed and no additional remarkable complaints except as stated - Review of System Constitutional: Absent: chills, diaphoresis, fever Head/Ears/Nose/Throat: Absent: sore throat Respiratory: Absent: cough Cardiovascular: Absent: chest pain Gastrointestinal: Present: abdominal pain, vomiting Musculoskeletal: Absent: arm pain, back pain Neurological: Absent: headache, weakness, numbness, paresthesias Medical,Surgical,& Family Hx - Medical History Cardio: History of: Hypertension Psychological: History of: Depression Neurology: History of: Cerebrovascular Accident (CVA 1997,2002,2009), Vertigo No history of: Seizures HEENT: History of: Eye Problem (RIGHT EYE LID DROOP), Dental Problems (BLEEDING GUMS,HALLOTOSIS) Endocrine: History of: Dyslipidemia Rheumatology: History of;: Rheumatoid Arthritis Respiratory: History of: Respiratory Problems (SNORES) Genitourinary: History of: Recurring Urinary Tract Infections, Problems ( OCASSIONAL INCONTINENT OF URINE) Gastrointestinal: History of: GI Problems (PEG) - Surgical History Cardiac Surgeries: Patient Denies: Cardiac Catheterization Thoracic Surgeries: Patient denies;: Kidney (Renal Surgery), Lithotripsy, Nephrectomy Neurologic Surgeries: Patient denies: Neurologic Surgery Abdominal Surgeries: Surgical HX of: Abdominal Surgery, Cholecystectomy Reproductive Surgeries: Patient denies;: Cystoscopy, Genitourinary Surgery Orthopedic Surgeries: Patient denies;: Orthopedic Surgery - Family History Family History: Reports;: Family Cancer, Family Diabetes, Family Heart Disease, Family Hypertension, Family Stroke - Social History Smoking Status: Smoker, status unknown Frequency of Alcohol Use: None Type of Drug Use: None Exam Vital Signs: Vital Signs Temperature 98.7 F 06/02/17 15:22 Pulse Rate 125 H 06/02/17 18:45 Respiratory Rate 20 06/02/17 18:45 Blood Pressure 196/101 06/02/17 18:45 O2 Sat by Pulse Oximetry 98 06/02/17 18:45 - General Exam limited due to: ALOC - Head Head exam: Present: atraumatic, normocephalic, normal inspection - Eye Eye exam: Present: normal appearance, PERRL, EOMI - ENT ENT exam: Present: normal exam, normal oropharynx, mucous membranes moist, TM's normal bilaterally - Neck Neck exam: Present: normal inspection, full ROM, trachea midline - Chest Chest inspection: Present: normal inspection, symmetric chest wall rise. Absent : tenderness - Respiratory Respiratory exam: Present: normal lung sounds bilaterally. Absent: respiratory distress, wheezes - Cardiovascular Cardiovascular exam: Present: tachycardia, normal heart sounds. Absent: murmur , rubs, gallop - Abdominal Exam Abdominal exam: Present: soft, hypoactive bowel sounds. Absent: distention, tenderness, guarding, normal bowel sounds - Extremities Exam Extremities exam: Present: normal inspection, full ROM. Absent: tenderness - Back Exam Back exam: Present: normal inspection, full ROM. Absent: tenderness - Neurological Exam Neurological exam: Present: alert - Psychiatric Psychiatric exam: Present: normal affect - Skin Skin exam: Present: warm, dry, intact, normal color. Absent: pallor Course Course Narrative: This patient was evaluated with lab work as well as urinalysis and x-rays. She had a leukocytosis 20,000 and blood cultures were done. Lactic acid was 4.2. She received 2 L of fluid and did respond to the fluids her heart rate came down from 162 down to 120. Her blood pressure was normal. She could have had some concentrated CBC that could have resulted in leukocytosis because her platelet count was high and hemoglobin was normal whereas she had been anemic the past due to GI bleeding problems. She did get a CT scan of her abdomen and her chest because of an elevated d-dimer and some abdominal pain with bilious emesis and these all were normal with no acute pathology. She was dehydrated with a creatinine of 1.6 and she was treated for that in the ER and discussed with the hospitalist service on-call who agreed to come and see her for admission. Results - Labs CBC & BMP: 06/02/17 16:31 06/02/17 16:31 Lab Results: I have reviewed the patients labs Labs: Laboratory Tests 06/02/17 16:31 Sodium 143 Potassium 4.1 Chloride 104 Carbon Dioxide 29 Anion Gap 14.1 BUN 25 H Creatinine 1.60 H GFR Calculation 42 BUN/Creatinine Ratio 15.00 Glucose 219 H Calculated Osmolality 295.0 Calcium 10.0 Total Bilirubin 0.70 AST 38 H ALT 40 Alkaline Phosphatase 118 H Total Protein 10.2 H Albumin 3.6 Globulin 6.6 H Albumin/Globulin Ratio 0.5 L Lipase 286.0 Laboratory Tests 06/02/17 06/02/17 16:31 16:31 D-Dimer, Quantitative 2.0 Urine Color Dark yellow Urine Appearance Slightly hazy Urine pH 5.0 Ur Specific [place] 1.031 Urine Protein 100 Urine Glucose (UA) 50 Urine Ketones 5 Urine Blood Negative Urine Nitrate Negative Urine Bilirubin Negative Urine Urobilinogen 2.0 H Urine Leukocytes Negative Urine RBC 1 Urine WBC 1 Ur Squamous Epith Cells Occasional Urine Bacteria Occasional Urine Mucus Few Ur Culture Indicated? Not indicated Laboratory Tests 06/02/17 16:31 Total Creatine Kinase 259 H CK-MB (CK-2) < 1.0 Troponin I 0.053 H Laboratory Tests 06/02/17 06/02/17 16:31 16:31 WBC 21.8 H RBC 5.48 Hgb 14.7 Hct 45.1 MCV 82.3 L MCH 27 MCHC 32.6 RDW 15.1 Plt Count 433 H MPV 10.6 Neut % (Auto) 87.8 H Lymph % (Auto) 5.2 L [place] % (Auto) 6.4 Eos % (Auto) 0.0 Baso % (Auto) 0.1 Neut # (Auto) 19.1 H Lymph # (Auto) 1.1 L [place] # (Auto) 1.4 H Eos # (Auto) 0.0 Baso # (Auto) 0.0 Immature Gran % 0.5 Nucleated RBC % 0.0 Immature Gran # 0.11 Nucleated RBCs # 0.00 Immature Plt Fraction 0.0 Blood Type B POSITIVE Antibody Screen Negative Laboratory Tests 06/02/17 16:31 Total Counted 100 Segmented Neutrophils 87 H Band Neutrophils 1 Lymphocytes 5 L Monocytes 7 Platelet Estimate Adequate Giant Platelets Few Hypochromasia 1+ Laboratory Tests 06/02/17 19:11 Lactic Acid 4.2 H - Diagnostic Findings Procedure: Abdominal x-ray: report reviewed by me ("Abd X-ray: Nasogastric tube in satisfactory position. Nonobstructive bowel gas pattern."), Chest x-ray: report reviewed by me ("Chest X-ray: No acute cardiopulmonary findings."), CT Abdomen and Pelvis: report reviewed by me ("Abd/pel w/ Con: 1. No acute findings to explain patient's symptoms. 2. Incidental findings as discussed above."), CT - chest: report reviewed by me ("CT Chest PE study: 1. No evidence of pulmonary embolism. 2. No acute intrathoracic abnormality.") Disposition Clinical Impression: Gastroenteritis, Acute kidney injury Case discussed with: patient's family Disposition: Still a Patient Condition: Stable Time of Disposition: 20:16
--- NOTE | 2017-06-02 20:29 | Hospitalist History & Physical ---
<Valeri Monroy Kartik - Last Filed: 06/02/17 21:00> Assessment and Plan - Time spent with patient Time spent with patient: Greater than 30 minutes (1) Septic shock Status: Acute Current Visit: Yes (2) Acute renal failure Status: Acute Current Visit: Yes (3) Aspiration into airway Status: Acute Current Visit: Yes (4) Hypertension Status: Chronic Current Visit: No (5) History of stroke Status: Chronic Current Visit: No (6) DVT prophylaxis Status: Acute Assessment and plan: Lovenox 40 mg SQ daily. Current Visit: Yes History of Present Illness History of present illness: Ms. John is a 67 year old female with a past medical history of HTN and CVA affecting both sides of her body who was brought to the ED day for evaluation of biliary vomiting. In the ED, Ms. John continued with projectile vomiting, so an NG tube was placed. Her daughter reports that one previous episode of vomiting occurred on February 11, 2017, for which Ms. John was hospitalized and seen by GI. Ms. John is non-communicative, so an extensive work-up was performed in the ED which included significant findings of WBC count of 21.8, lactic acid of 4.2, Troponin of 0.053, and creatinine of 1.6. Her D-dimer was 2.0, CT of abdomen and chest were both without acute findings, and urine was unremarkable. Upon presentation, she was tachycardic with HR in the 160s, so she was given 2 liters of fluid. Currently, she is sleeping and difficult to arouse. When aroused, her eyes open but she does not respond to questions. Her current HR is in the 130s-140s. Hospitalist services were consulted, and the patient will be admitted to the ICU for further evaluation and treatment. Home Medications Medication Instructions Recorded Confirmed Type Sertraline [Zoloft] 50 mg PEG 2000 04/18/15 06/02/17 History Magnesium Hydroxide Susp [Milk of 30 ml PEG DAILY PRN 11/27/16 06/02/17 History Magnesia] Scopolamine 1.5 mg Patch 1 patch TRANSDERM Q3DAY 11/27/16 06/02/17 History [Transderm Scop 1.5 mg/72 hr Patch] cloNIDine TAB [Catapres Tab] 0.3 mg PEG TID 02/11/17 06/02/17 History Aspirin Chew Tab 81 mg PER TUBE 89905/25/17 06/02/17 History Omeprazole 20 mg PEG 0630 05/25/17 06/02/17 History Acetaminophen Tab [Tylenol Tab] 650 mg PEG Q4H PRN 06/02/17 06/02/17 History amLODIPine [Norvasc] 10 mg PEG 89906/02/17 06/02/17 History Allergies Allergy/AdvReac Type Severity Reaction Status Date / Time No Known Allergies Allergy Verified 06/02/17 15:41 Medical,Surgical,& Family Hx - Social History Smoking Status: Never smoker (per daughter) Have you smoked in the last 12 months: No Exam - Constitutional Vitals: Period Temp Pulse Resp BP Sys/Shepard Pulse Ox Last 24 Hr 98.7 F-98.7 F 120-165 18-20 163-196/101-118 97-99 Exam: Constitutional System: Afebrile. Sleeping; difficult to arouse. Head: Normocephalic, atraumatic. Ears, Nose and Throat System: No epistaxis or discharge Eyes System: Pupils equal, round, and reactive. Eyes will open and patient will look focus on speaker but eyes do not track movement. Neck: Supple, without adenopathy, [No] jugular venous distention. No thyromegaly , neck mass, or prior surgery apparent. Respiratory System: Breath sounds diminished throughout. Rhonchi throughout. Cardiovascular System: Tachycardic. Regular rhythm. [No] murmur. GI System: Abdomen [soft], no guarding. [Hypo]active bowel sounds present. PEG tube present, clean, dry, intact. NG tube to low intermittent suction present. Musculoskeletal System: Limbs with [no] pedal edema. [Full] distal pulses. Normal capillary refill. Neurological System: Eyes open to verbal and tactile stimulation; does not communicate verbally. Psychiatric System: Does not communicate verbally. Results - Labs CBC & BMP: 06/02/17 16:31 06/02/17 16:31 <Nidia Garcia - Last Filed: 06/03/17 12:50> Assessment and Plan (1) Septic shock Status: Acute Assessment and plan: suspect aspiration pneumonia, elevated lactic acid, WBC 21, blood cx times 2 drawn, ua negative, ct abd, chest negative, two liters given in ER, repeat lactic acid Current Visit: Yes (2) Acute renal failure Status: Acute Assessment and plan: hydration and repeat in am Current Visit: Yes (3) History of stroke Status: Chronic Assessment and plan: restart home meds Current Visit: No (4) Hypertension Status: Chronic Assessment and plan: coreg 6.25 mg po bid, hydralazine 10 mg IV every 6 hour, prn Current Visit: No (5) Aspiration into airway Status: Acute Assessment and plan: duoneb, consult margaux Hinson Current Visit: Yes History of Present Illness Chief complaint: abdominal pain History of present illness: Ms. John is a 67 year old female [facility] in [place] for further evaluation of vomiting "green bile." Pt has a Peg tube placed because she is unable to swallow due to previous CVA's affecting both sides. Pt's Peg tube came out on and was brougt to the ED to replace it. Pt's 1st episode of vomiting happened February 11, 2017. Pt's primary historian is her family member who states the pt was c/o Abd pain. No other pains/complaints reported to the ED. CT of chest and abdomen shows no acute issues. Patient is tachycardic, with a WBC of 21 and lactic acid over 4. Sepsis order set utilized. NS bolus 2 liters in ER , another liter of NS ordered. Medical,Surgical,& Family Hx - Medical History Cardio: History of: Hypertension Psychological: History of: Depression Neurology: History of: Cerebrovascular Accident (CVA 1997,2002,2009), Vertigo No history of: Seizures HEENT: History of: Eye Problem (RIGHT EYE LID DROOP), Dental Problems (BLEEDING GUMS,HALLOTOSIS) Endocrine: History of: Dyslipidemia Rheumatology: History of;: Rheumatoid Arthritis Respiratory: History of: Respiratory Problems (SNORES) Genitourinary: History of: Recurring Urinary Tract Infections, Problems ( OCASSIONAL INCONTINENT OF URINE) Gastrointestinal: History of: GI Problems (PEG) - Surgical History Cardiac Surgeries: Patient Denies: Cardiac Catheterization Thoracic Surgeries: Patient denies;: Kidney (Renal Surgery), Lithotripsy, Nephrectomy Neurologic Surgeries: Patient denies: Neurologic Surgery Abdominal Surgeries: Surgical HX of: Abdominal Surgery, Cholecystectomy Reproductive Surgeries: Patient denies;: Cystoscopy, Genitourinary Surgery Orthopedic Surgeries: Patient denies;: Orthopedic Surgery - Family History Family History: Reports;: Family Cancer, Family Diabetes, Family Heart Disease, Family Hypertension, Family Stroke - Social History Smoking Status: Smoker, status unknown Frequency of Alcohol Use: None Type of Drug Use: None Marital Status: Single Lives With:: ng Functional capacity: bed bound ROS unobtainable: due to mental status, due to delirium - Constitutional Constitutional: Present: fever(s) Exam - Constitutional Vitals: Period Temp Pulse Resp BP Sys/Shepard Pulse Ox Last 24 Hr 98.7 F-98.7 F 120-165 18-20 163-196/101-118 97-99 General appearance: normal weight, severe distress - Head Head exam: Present: normal inspection, normocephalic - Eye Eye exam: Present: EOMI. Absent: scleral icterus Pupils: Present: PAZ, normal accommodation - Neck Neck exam: Absent: lymphadenopathy, thyromegaly - Respiratory Respiratory exam: Present: decreased breath sounds, rhonchi - Cardiovascular Cardiovascular exam: Present: tachycardia. Absent: systolic murmur - GI/Abdominal GI/Abdominal exam: Present: normal bowel sounds, soft. Absent: tenderness - Extremities Exam Extremities exam: Present: normal inspection, normal capillary refill - Neurological Exam Neurological exam: Present: altered, motor sensory deficit (bilateral LE and UE weakness ) - Psychiatric Psychiatric exam: Present: depressed, flat affect - Skin Skin exam: Present: normal color, warm Results - Labs CBC & BMP: 06/03/17 05:02 06/03/17 05:02 Lab Results: I have reviewed the past 24 hour labs - EKG EKG shows: tachycardia, sinus rhythm - Diagnostic Findings Procedure: CT Abdomen and Pelvis: report reviewed by me (nothing acute ), CT - chest: report reviewed by me (no PE or pneumonia ) Sepsis - Sepsis Classification of Sepsis: Septic Shock - Physical Exam Respiratory exam: clear to auscultation bilaterally Capillary Refill: Less Than 3 Seconds Peripheral pulses: Radial (L): 2+, Radial (R): 2+, Dorsalis Pedis (L) PM: 2+, Dorsalis Pedis (R) PM: 2+, Posterior Tibialis (L): 2+, Posterior Tibialis (R): 2 + Cardiovascular exam: tachycardia Skin exam: normal color
[2017-06-02] MEDS ORDERED: CARVEDILOL 3.125 MG TABLET PO STA (22:24)
[2017-06-02] MEDS ORDERED: ALBUTEROL 2.5 MG/3 ML NEB RESP TX PRN (22:24)
[2017-06-02] MEDS ORDERED: hydrALAZINE 20 MG/1 ML VIAL IV PRN (22:24)
[2017-06-02] MEDS ORDERED: SODIUM CHLORIDE 0.9% 1,000 ML IV SCH (22:24)
[2017-06-02] MEDS ORDERED: ACETAMINOPHEN 325 MG TABLET PO PRN (22:24)
[2017-06-02] MEDS ORDERED: SODIUM CHLORIDE 0.9% 500 ML IV ONE (22:24)
[2017-06-02] MEDS ORDERED: ONDANSETRON 4 MG/2 ML VIAL IV PRN (22:24)
[2017-06-02] MEDS: PANTOPRAZOLE 40 MG VIAL IV SCH (23:06)
[2017-06-02] MEDS: VANCOMYCIN INJ 1,250 MG in SODIUM CHLORIDE 0.9% 250 ML IV SCH (23:07)
[2017-06-02] MEDS: ENOXAPARIN 40 MG/0.4 ML SYRINGE SUBCUT SCH (23:07)
[2017-06-02 23:13] LABS: ABG Base Excess 5.9 MMOL/L (-2.5-2.5); ABG HCO3 29.8 MMOL/L (20-26); ABG PCO2 41.7 MM HG (35-48); ABG PH 7.468 (7.35-7.45); ABG PO2 89.5 MM HG (80-95); ABG TCO2 26.2 MMOL/L (23-27); Allen Test Positive; Pt O2 Delivery Device Room Air
[2017-06-02 23:39] LABS: Magnesium 1.8 MG/DL (1.8-2.4)
[2017-06-02 23:43] LABS: INR 1.7; PT Patient Result 18.2 SECS; Partial Thromboplastin Time 39.1 SECS (0-40)
[2017-06-03] MEDS: ALBUTEROL/IPRATROPIUM 3 ML NEB RESP TX SCH ×4 (00:14→20:19)
[2017-06-03] MEDS: PIPERACILLIN/TAZOBACTAM 3,375 MG in SODIUM CHLORIDE 0.9% 100 ML IV SCH ×3 (00:40→16:07)
[2017-06-03] MEDS ORDERED: hydrALAZINE 20 MG/1 ML VIAL IV ONE (01:40)
[2017-06-03] MEDS ORDERED: LABETALOL 20 MG/4 ML SYRINGE IV ONE (04:05)
[2017-06-03] MEDS ORDERED: SODIUM CHLORIDE 0.9% 500 ML IV ONE (04:07)
[2017-06-03 05:14] LABS: Basophils % 0.1 % (0.0-0.8); Hemoglobin 12.2 GM/DL (12.0-16.0); Immature Granulocytes % 0.5 %; Lymphocytes # 1.3 10*3/uL (1.4-4.0); Lymphocytes % 7.2 % (21.3-54.2); Mean Corpuscular HGB Conc 32.1 GM/DL (32-36); Mean Corpuscular Hemoglobin 27 PG (27-34); Mean Corpuscular Volume 82.4 FL (87-102); Monocytes # 0.7 10*3/uL (0.11-0.8); Monocytes % 3.8 % (1.7-12.7); Neutrophils # 16.1 10*3/uL (1.4-7.4); Neutrophils % 88.4 % (38.7-73.9); Platelet Count 352 T/CUMM (130-400); Red Blood Count 4.61 MC/CUMM (3.8-5.5); Red Cell Distribution Width 14.9 % (9.3-17.3); White Blood Count 18.3 T/CUMM (4-12)
[2017-06-03 05:45] LABS: Albumin 2.8 G/DL (3.4-5.0); Bilirubin,Total 1.2 MG/DL (0.2-1.0); Osmolality,Calculated 293.7 MOS/KG (273-304); Potassium 3.4 MMOL/L (3.5-5.1)
--- NOTE | 2017-06-03 06:54 | EKG Report ---
Stationary ECG Study [facility] ER Test Date: 06/02/2017 5:40:23 PM Pat Name: SHANI ESTEVEZ Department: Room: 118 Gender: F Spanish Interpreter: : 1950 Requested by: David Judge Order Number: [id number] Reading MD: JAMAR LEONARD Intervals [place] Rate: 134 P: 73 LA: 92 QRS: 79 QRSD: 78 T: -28 QT: 300 QTc: 379 Interpretive Statements SINUS TACHYCARDIA WITH SHORT LA INTERVAL WITH OCCASIONAL ECTOPIC PREMATURE COMPLEXES NONSPECIFIC T-WAVE ABNORMALITY Electronically Signed On 06-03-17 15:44:31 CDT by JAMAR LEONARD [email or web address]
[2017-06-03] MEDS ORDERED: CARVEDILOL 6.25 MG TABLET PO SCH (09:00)
[2017-06-03] MEDS ORDERED: PANTOPRAZOLE 40 MG TABLET PO SCH (09:00)
[2017-06-03] MEDS: methylPREDNISolone SOD SUC 40 MG/1 ML VIAL IV SCH ×2 (09:40→20:24)
[2017-06-03] MEDS: CARVEDILOL 25 MG TABLET PO SCH ×2 (09:41→20:24)
[2017-06-03] MEDS: POTASSIUM CHLORIDE INJ 40 MEQ in SODIUM CHLORIDE 0.45% 1,000 ML IV SCH (09:42)
[2017-06-03] MEDS: ASPIRIN CHEW 81 MG TABLET PO SCH (09:42)
[2017-06-03] MEDS: POTASSIUM CHLORIDE RIDER 10 MEQ in PREMIX 1 EACH IV SCH ×4 (09:43→13:44)
--- NOTE | 2017-06-03 10:09 | XRay Report ---
Portable chest June 03, 2017 at 0854 hours Indication: Shortness of breath Comparison: Previous day at 1650 hours Findings: Cardiomediastinal contours are stable. Lungs are clear bilaterally. Tubes and lines remain in satisfactory position. No acute osseous abnormalities. Visualized upper abdomen is grossly unremarkable. Impression: No acute cardiopulmonary findings PROCEDURE INTERPRETED AT [facility] DEPARTMENT OF RADIOLOGY Final Report Signed by: Dre Ortiz
--- NOTE | 2017-06-03 11:10 | Pulmonology Consult Note ---
History of Present Illness Chief complaint: Aspiration. Cough. History of present illness: Ms. John is a 67 year old female whom I been asked to see in pulmonary consultation. She is a custodial patient. She has been vomiting "green bowel". Patient had a PEG tube placed because she was unable to swallow secondary to a previous CVA. She has bilateral long track and cranial nerve findings. PEG tube "came out" on 04/24/2017. Patient was brought to the emergency room to replace it. According to her history obtained from the chart her family said that her first episode of vomiting occurred February 11, 2017. I am not sure all of these dates are correct. Patient was admitted through the emergency room this time with cough productive of green gastric appearing secretions she had a tracheal and laryngeal stridor. She was tachycardic. She had a white blood cell count of 21,000 and lactic acid was above 4. She was felt to be septic. She was cultured and started on all the appropriate antibiotics and other modalities. This morning she is a little better but she still has significant physical exam evidence of aspiration with a tracheal and large airway stridor and congestion. This patient cannot give a history therefore the remainder of her review of systems are negative. . Allergies none known Home medicines. Zoloft. Magnesium. Scopolamine. Catapres tablets 0.3 mg 3 times daily. Baby aspirin once a day. Prilosec 20 mg once a day. Tylenol. Norvasc 10 mg daily. Past history. 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 Hypertension. History of depression. History of vertigo. Hyperlipidemia. History of rheumatoid arthritis. History of recurrent urinary tract infections. 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 Social history. Patient lives in a custodial. She is reportedly bedbound Family history. Diabetes heart disease hypertension stroke and cancer Chest x-ray 06/02/2017. My interpretation. No definite infiltrates and no congestive heart failure Chest x-ray 06/03/2017. My interpretation. Right lower lung medial basilar atelectasis versus infiltrate. This is new. No heart failure. No pneumothorax. ABGs. Labeled room air. PH is 7.468, PCO2 is 41.7, PO2 is 89.5 and bicarb is 29.8. Lab. Electrolytes normal. Creatinine was 1.6 at admission and has dropped to 0.90 with a BUN of 17. Admit white count was 21,800 with 88 segs and 5 lymphs. White count is dropped 18,300. With rehydration H&H is dropped to 12.2/38.0. MCV is low MCH is low normal MCHC is low normal. Red blood cell distribution width is top normal at 14.9. Platelets are 352,000 and MPV is normal at 10. INR is 1.7. TSH is slightly low with a free T4 in the upper part of the normal range. Lipase is normal. Total protein is 8 albumin is low at 2.8 and globulins are up at 5.2. Urinalysis appears to be negative for infection. Note mild elevation of BNP at 194. Physical exam. Vital signs. See below. Patient is normotensive and there is no recorded fevers. . Face is symmetrical. There is no edema of the tongue or lips. Patient does make snoring type noise with inspiration. Neck. Slightly kyphotic with no masses. Thyroid was not palpated Lymphatics. No submandibular cervical supraclavicular or epitrochlear adenopathy Chest. Slightly to moderately kyphotic with coarse wheezing congestion over the laryngeal area the entire trachea and both mainstem bronchi. No peripheral wheezes and no peripheral inspiratory squeaks were heard no obvious chest wall tenderness Heart. Lateral PMI no gallop Abdomen. Nontender no organs were palpated there were a few bowel sounds. and rectal deferred Lower extremities chronic venous stasis. Neuro. Face is slightly symmetrical and there is a croupy upper eyelid. I do not recall which side there is some limited movement in each extremity but I do not see any truly functional movement. The remainder the exam is negative from my standpoint Impression. 1. Acute aspiration of gastric contents. Historically this may be a chronic problem for the past few months. 2. History of PEG feeding. 3. 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 4. Suspected sepsis. 5. Acute right lower lung infiltrate. Aspirate versus infection or both. 6. History of high blood pressure 7. Hyperlipidemia 8. See past history. Plan. 1. I agree with antibiotics and I have added steroids because of the possible aspiration injury. 2. Inhalation therapy 3. Fiberoptic bronchoscopy. We will schedule for later today. 4. PEG tube function needs to be investigated. 6. Follow-up chest x-rays and ABGs. Home Medications Medication Instructions Recorded Confirmed Type Sertraline [Zoloft] 50 mg PEG 199904/18/15 06/02/17 History Magnesium Hydroxide Susp [Milk of 30 ml PEG DAILY PRN 11/27/16 06/02/17 History Magnesia] Scopolamine 1.5 mg Patch 1 patch TRANSDERM Q3DAY 11/27/16 06/02/17 History [Transderm Scop 1.5 mg/72 hr Patch] cloNIDine TAB [Catapres Tab] 0.3 mg PEG TID 02/11/17 06/02/17 History Aspirin Chew Tab 81 mg PER TUBE 89905/25/17 06/02/17 History Omeprazole 20 mg PEG 62905/25/17 06/02/17 History Acetaminophen Tab [Tylenol Tab] 650 mg PEG Q4H PRN 06/02/17 06/02/17 History amLODIPine [Norvasc] 10 mg PEG 89906/02/17 06/02/17 History Allergies Allergy/AdvReac Type Severity Reaction Status Date / Time No Known Allergies Allergy Verified 06/02/17 15:41 Exam (Pulmonay) H&P - Constitutional Vitals: Period Temp Pulse Resp BP Sys/Shepard Pulse Ox Last 24 Hr 97.1 F-99.7 F 95-165 15-32 159-203/83-127 96-100 Medical,Surgical,& Family Hx - Medical History Cardio: History of: Hypertension Psychological: History of: Depression Neurology: History of: Cerebrovascular Accident (CVA 1997,2002,2009), Vertigo No history of: Seizures HEENT: History of: Eye Problem (RIGHT EYE LID DROOP), Dental Problems (BLEEDING GUMS,HALLOTOSIS) Endocrine: History of: Dyslipidemia Rheumatology: History of;: Rheumatoid Arthritis Respiratory: History of: Respiratory Problems (SNORES) Genitourinary: History of: Recurring Urinary Tract Infections, Problems ( OCASSIONAL INCONTINENT OF URINE) Gastrointestinal: History of: GI Problems (PEG) Hematology: History of: Anemia - Surgical History Cardiac Surgeries: Patient Denies: Cardiac Catheterization Thoracic Surgeries: Patient denies;: Kidney (Renal Surgery), Lithotripsy, Nephrectomy Neurologic Surgeries: Patient denies: Neurologic Surgery Abdominal Surgeries: Surgical HX of: Abdominal Surgery, Cholecystectomy Reproductive Surgeries: Patient denies;: Cystoscopy, Genitourinary Surgery Orthopedic Surgeries: Patient denies;: Orthopedic Surgery - Family History Family History: Reports;: Family Cancer, Family Diabetes, Family Heart Disease, Family Hypertension, Family Stroke - Social History Smoking Status: Never smoker Frequency of Alcohol Use: None Type of Drug Use: None Results - Labs CBC & BMP: 06/03/17 05:02 06/03/17 05:02
--- NOTE | 2017-06-03 12:09 | Event Note ---
In hospital diagnostic and therapeutic fiberoptic bronchoscopy. Bilateral bronchoalveolar lavage is sent for Gram stain, bacterial culture, fungal stains and culture. This is a 67-year-old black female with bilateral strokes in an ineffective cough. She was thought to have aspirated. She has had a severe cough. Initially she had a laryngeal and tracheal stridor which gradually improved. Her follow-up chest x-ray showed a right lower lung infiltrate. She is felt to have retained gastric material in her lungs. For all these reasons she is evaluated with fiberoptic bronchoscopy. The patient's nasal and oropharyngeal pharynx collapses in an anterior posterior fashion with each inspiration. She has a loud snore associated with this. She has a good bit of redundant tissue in the area of the larynx. The vocal cords were normal and she had a fairly good gag reflex. The trachea contained a good bit of thick material. Some of this was particulate and appeared to be gastric aspirate. The guilherme was sharp. The right upper lung and right lower lung showed severe erosive friable bronchitis that bled when touched. This had the appearance of an acute gastric injury. Again there was good bit of liquid material and some particulate matter that looked like it was gastric in etiology. This was removed with bronchoalveolar lavage of the right upper and right lower lung. Right middle lung appeared to be spared. The left mainstem bronchus contained a good bit of liquid and particulate matter and this extended into the left upper lung and the left lower lung. This was removed with bronchoalveolar lavage. There was mild erythema in the left upper lung and mild to moderate erythema with friability of several of the segments of the left lower lung. Bilateral bronchoalveolar lavages were sent for Gram stain and bacterial culture fungal stains and culture. I did not send specimens for cytology. Patient tolerated procedure well there were no complications. Impression. 1. Acute aspiration with bilateral erosive friable bronchitis. There is a good bit of associated endobronchial edema in the right lower lung and to a lesser extent in the left lower lung. 2. Ineffective cough. Complicated by neurological disease 3. Good gag reflex 4. Upper airway obstruction with snoring. No apnea was noted. 5. Right lower lung infiltrate. This is most likely secondary to gastric aspirate and will have to look for bacterial superinfection which would mean a bacterial pneumonia. We are definitely looking at an aspiration pneumonia. Plan. 1. Follow-up x-ray 2. Check bronchoscopy specimens 3. Antibiotics 4. Low-dose steroids for gastric acid injury 5. Aspiration precautions. 6. Dr. Nidia Garcia was present during fiberoptic procedure. We have discussed the case and coordinated our care
--- NOTE | 2017-06-03 12:32 | ECHO Report ---
Kayleigh John Exam Date: 06/03/2017 07:37 Referring Physician: Technologist: Skye Parra Age: 67 Ht (in): 66 Wt (lb): 118 Gender: F Exam Location: [facility] Echo Indications: septic shock, acute kidney injury, DVT, aspiration into airway, acute renal failure BP: 165 / 95 HR: 96 Rhythm: tachycardia Technical Quality: Fair IMPRESSIONS EF 65%. Grade I/IV diastolic dysfunction (abnormal relaxation filling pattern), normal to mildly elevated filling pressures. Normal right ventricular size. Normal right atrial size. The left atrium is mildly enlarged. Mildly thickened mitral valve. Trace mitral valve regurgitation. Aortic valve sclerosis. No aortic valve regurgitation. Mild tricuspid valve regurgitation. PAP30 mmHG. Pulmonic valve not well visualized. No pericardial effusion. Normal size aortic root and proximal ascending aorta. MEASUREMENTS (Male / Female) Normal Values 2D ECHO LV Diastolic Diameter PLAX 3.4 cm 4.2 - 5.9 / 3.9 - 5.3 cm LV Systolic Diameter PLAX 2.3 cm LV Fractional Shortening PLAX 32.4 % IVS Diastolic Thickness 1.4 cm 0.6 - 1.0 / 0.6 - 0.9 cm LVPW Diastolic Thickness 1.3 cm 0.6 - 1.0 / 0.6 - 0.9 cm Aortic Root Diameter 2.3 cm LA Systolic Diameter LX 2.6 cm 3.0 - 4.0 / 2.7 - 3.8 cm DOPPLER TR Peak Velocity 159.0 cm/s TR Peak Gradient 10.1 mmHg FINDINGS Left Ventricle EF 65%. Grade I/IV diastolic dysfunction (abnormal relaxation filling pattern), normal to mildly elevated filling pressures. Right Ventricle Normal right ventricular size. Right Atrium Normal right atrial size. Left Atrium The left atrium is mildly enlarged. Mitral Valve Mildly thickened mitral valve. Trace mitral valve regurgitation. Aortic Valve Aortic valve sclerosis. No aortic valve regurgitation. Tricuspid Valve Morphologically normal tricuspid valve. Mild tricuspid valve regurgitation. PAP30 mmHG. Pulmonic Valve Pulmonic valve not well visualized. Pericardium No pericardial effusion. Aorta Normal size aortic root and proximal ascending aorta. Jorden Cole (Electronically Signed) Final Date: 03 June 2017 12:31
[2017-06-03] MEDS: hydrALAZINE 20 MG/1 ML VIAL IV PRN (12:40)
[2017-06-03] MEDS ORDERED: POTASSIUM CHLORIDE RIDER 100 ML IV ONE (13:39)
[2017-06-03] MEDS ORDERED: LIDOCAINE 2% VISCOUS 100 ML BOTTLE SWISH/SWAL ONE ×2 (14:13→14:19)
[2017-06-03] MEDS ORDERED: LIDOCAINE 4% TOP SOLN 50 ML BOTTLE RESP TX ONE (14:13)
[2017-06-03] MEDS ORDERED: LABETALOL 20 MG/4 ML SYRINGE IV PRN (14:32)
--- NOTE | 2017-06-03 15:26 | Hospitalist Progress Note ---
Assessment and Plan (1) Septic shock Status: Acute Assessment and plan: suspect aspiration pneumonia, white count decreased to 18, bronchoscopy done today confirms evidence of aspiration, blood cx times 2 pending Current Visit: Yes (2) Acute renal failure Status: Acute Assessment and plan: Renal failure resolved with hydration. Potassium was slightly low change IV fluids to one half normal saline with potassium Current Visit: Yes (3) History of stroke Status: Chronic Assessment and plan: Continue aspirin Current Visit: No (4) Hypertension Status: Chronic Assessment and plan: Not well controlled increase Coreg to 25 mg p.o. twice daily and as needed labetalol order, losartan 25 mg Current Visit: No (5) Aspiration pneumonia Status: Acute Assessment and plan: Continue Zosyn and vancomycin. Current Visit: Yes Hospitalist: Subjective Interval history: Patient had less rhonchi in her lungs today. She did undergo bronchoscopy today and he removed copious secretions and noted evidence of erythema and her bronchial airways consistent with aspiration. I was with Dr. Larson when he did the bronch. Patient has severe obstructive sleep apnea and should be on CPAP at night. Will ask Dr. Will to see her on Sunday. Patient will consult be an aspiration risk due to her bilateral strokes. Hold tube feedings for now. Exam - Constitutional Vitals: Period Temp Pulse Resp BP Sys/Shepard Pulse Ox Last 24 Hr 97.1 F-99.7 F 95-150 15-32 131-203/81-135 94-100 Exam: Heart Rate-[tachycardic] Lungs-[coarse rhonchi better than yesterday.] GI-[+bs soft, NT] Ext-[no edema] Neuro [Motor 4/5], [alert and oriented times 0] psych [depressed mood and affect] General [no acute distress] Results - Labs CBC & BMP: 06/03/17 05:02 06/03/17 05:02 Lab Results: I have reviewed the past 24 hour labs Labs: Fungal smear no fungal elements seen on bronc, blood cultures 2 - Diagnostic Findings Procedure: Chest x-ray: report reviewed by me (Nothing acute)
[2017-06-03] MEDS: LOSARTAN 25 MG TABLET PO SCH (16:07)
[2017-06-03] MEDS: SERTRALINE 50 MG TABLET PEG SCH (20:24)
[2017-06-03] MEDS: PANTOPRAZOLE 40 MG VIAL IV SCH (23:10)
[2017-06-03] MEDS: ENOXAPARIN 40 MG/0.4 ML SYRINGE SUBCUT SCH (23:10)
[2017-06-03] MEDS: VANCOMYCIN INJ 1,250 MG in SODIUM CHLORIDE 0.9% 250 ML IV SCH (23:11)
[2017-06-04] MEDS: PIPERACILLIN/TAZOBACTAM 3,375 MG in SODIUM CHLORIDE 0.9% 100 ML IV SCH ×4 (01:13→18:29)
[2017-06-04] MEDS: ALBUTEROL/IPRATROPIUM 3 ML NEB RESP TX SCH ×4 (01:19→20:20)
[2017-06-04] MEDS: POTASSIUM CHLORIDE INJ 40 MEQ in SODIUM CHLORIDE 0.45% 1,000 ML IV SCH (05:00)
[2017-06-04] MEDS: hydrALAZINE 20 MG/1 ML VIAL IV PRN (06:06)
[2017-06-04 06:09] LABS: Basophils % 0.1 % (0.0-0.8); Hematocrit 43.4 VOL% (35.7-47.0); Hemoglobin 13.5 GM/DL (12.0-16.0); Immature Granulocytes % 0.5 %; Immature Granulocytes Absolute 0.05 #; Lymphocytes # 1.6 10*3/uL (1.4-4.0); Lymphocytes % 14.3 % (21.3-54.2); Mean Corpuscular HGB Conc 31.1 GM/DL (32-36); Mean Corpuscular Hemoglobin 27 PG (27-34); Mean Corpuscular Volume 85.6 FL (87-102); Mean Platelet Volume 10.7 FL (9.6-12.0); Monocytes # 0.3 10*3/uL (0.11-0.8); Monocytes % 2.9 % (1.7-12.7); Neutrophils # 8.9 10*3/uL (1.4-7.4); Neutrophils % 82.2 % (38.7-73.9); Platelet Count 263 T/CUMM (130-400); Red Blood Count 5.07 MC/CUMM (3.8-5.5); Red Cell Distribution Width 15.2 % (9.3-17.3); White Blood Count 10.9 T/CUMM (4-12)
[2017-06-04 06:33] LABS: Albumin 2.8 G/DL (3.4-5.0); Bilirubin,Total 0.6 MG/DL (0.2-1.0); Calcium 9.2 MG/DL (8.5-10.1); Osmolality,Calculated 285.3 MOS/KG (273-304); Potassium 5.2 MMOL/L (3.5-5.1); Total Protein 8.2 G/DL (6.4-8.3)
[2017-06-04] MEDS: methylPREDNISolone SOD SUC 40 MG/1 ML VIAL IV SCH ×2 (07:59→21:58)
[2017-06-04] MEDS: CARVEDILOL 25 MG TABLET PO SCH ×2 (07:59→21:58)
[2017-06-04] MEDS: LOSARTAN 25 MG TABLET PO SCH (07:59)
[2017-06-04] MEDS: ASPIRIN CHEW 81 MG TABLET PO SCH (08:00)
--- NOTE | 2017-06-04 08:50 | Pulmonology Progress Note ---
Pulmonary - PN: Subj Interval history: This is a 67-year-old senior living black female whom I saw in pulmonary consultation on 9 06/03/2017. My impressions were 1. Acute aspiration of gastric contents. Historically this may be a chronic problem for the past few months. On 06/03/2017 she was evaluated with fiberoptic bronchoscopy. See report. She had aspirated. 2. History of PEG feeding. 3. 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 4. Suspected sepsis. 5. Acute right lower lung infiltrate. Aspirate versus infection or both. 6. History of high blood pressure 7. Hyperlipidemia 8. See past history. On 06/04/2017. Today's chest x-ray shows resolution of right lower lung infiltrate. On 06/03/2017 this patient was evaluated with fiberoptic bronchoscopy. There was evidence of aspiration bilaterally. Bronchoscopy specimens are showing a gram-positive cocci at this time. This is covered with antibiotics. Potassium is 5.2 and I am going to take the potassium the patient' s drip with D5 normal saline. White count is dropped from 21,800-10,900 with 82 segs and 14 lymphs. H&H is 13.5/43.4. Creatinine has dropped from 1.60- 1.00 with a BUN of 23. Total protein is 8.2 albumin is low at 2.4 and globulins are elevated at 5.4. Patient is a good bit of upper airway secretions and needs to be suctioned with a Yonker. On bronchoscopy it was noted that she had upper airway obstruction secondary to AP collapse of the oral and pharyngeal airways appear Physical exam. Vital signs. See below Face is symmetrical. Patient has a large tongue. There is no edema of the tongue or lips. Neck. Symmetrical. Mild decreased range of motion. No meningismus. Chest. Symmetrical. No wheezes or stridor very little large airway congestion Heart no gallop Abdomen. Nontender. Positive bowel sounds Extremities nothing to suggest deep venous thrombophlebitis Lymphatics. No submandibular cervical supraclavicular or epitrochlear adenopathy Neurologic. Residual of previous stroke. See history and physical. The remainder the physical exam is noncontributory Plan. 06/03/2017 1. I agree with antibiotics and I have added steroids because of the possible aspiration injury. 2. Inhalation therapy 3. Fiberoptic bronchoscopy. We will schedule for later today. 4. PEG tube function needs to be investigated. 5. Follow-up chest x-rays and ABGs. 06/04/2017. 1. Check bronchoscopy specimens 2. Continue antibiotics 3. Follow-up chest x-ray tomorrow 4. Cut back on potassium replacement. 5. Repeat BMP in the morning. 6. See orders Exam (Progress Note) - Constitutional Vitals: Period Temp Pulse Resp BP Sys/Shepard Pulse Ox Last 24 Hr 97.8 F-99.8 F 74-120 14-32 125-191/66-135 94-100 Results - Labs CBC & BMP: 06/04/17 05:44 06/04/17 05:44
[2017-06-04] MEDS ORDERED: SODIUM CHLORIDE 0.45% 1,000 ML IV SCH (09:30)
--- NOTE | 2017-06-04 10:43 | XRay Report ---
Portable chest June 04, 2017 0821 hours Indication: Shortness of breath, cough Comparison: Not available Findings: Cardiomediastinal contours are normal. Esophageal gastric tube in satisfactory position. Lungs are clear bilaterally. No acute osseous abnormalities. Visualized upper abdomen demonstrates no acute pathology. Impression: No acute cardiopulmonary findings PROCEDURE INTERPRETED AT [facility] DEPARTMENT OF RADIOLOGY Final Report Signed by: Dre Ortiz
--- NOTE | 2017-06-04 11:08 | Hospitalist Progress Note ---
Assessment and Plan (1) Septic shock Status: Acute Assessment and plan: Due to aspiration pneumonitis confirmed by bronchoscopy, blood cultures 10/02 pending growing gram positive cocci in 10/02 Current Visit: Yes (2) Acute renal failure Status: Acute Assessment and plan: HL IVF Current Visit: Yes (3) History of stroke Status: Chronic Assessment and plan: Continue aspirin Current Visit: No (4) Hypertension Status: Chronic Assessment and plan: still not well controlled. Coreg to 25 mg p.o. twice daily, cont losartan, schedule labetalol Current Visit: No (5) Aspiration pneumonia Status: Acute Assessment and plan: more of a pneumonitis, continue Zosyn and vancomycin. Would cont vanco until we know whether the blood culture is a contaminant. Current Visit: Yes (6) Obstructive sleep apnea Status: Acute Assessment and plan: CPAP at night, consult Dr. Will in a.m. to see her. Current Visit: Yes (7) GERD (gastroesophageal reflux disease) Status: Acute Assessment and plan: Change to Prevacid Solutab is to give through PEG. Gastric emptying study today. Hold restarting tube feeds until we get an answer on the gastric emptying study. Current Visit: Yes Hospitalist: Subjective Interval history: Patient's blood pressure is stable. She has severe sleep apnea and will need Dr. Will to see her tomorrow. She has not had a bowel movement we will start Mylanta. It is essential that she wears CPAP at nighttime. We will remove the NG has its causing her discomfort and use her PEG. I want to do gastric emptying study on her today. We can DC her Sotelo to prevent infections. She is currently on one half normal saline at 75. We should restart her tube feedings once the results of the gastric emptying study are known. Exam - Constitutional Vitals: Period Temp Pulse Resp BP Sys/Shepard Pulse Ox Last 24 Hr 97.8 F-99.8 F 74-120 14-32 125-191/66-135 94-100 Exam: Heart Rate-[RRR] Lungs-[rhonchi but better after bronch GI-[+bs soft, NT] Ext-[no edema] Neuro [Motor 4/5], [alert and oriented times 0], snores loudly psych [depressed mood and affect] General [no acute distress] Results - Labs CBC & BMP: 06/04/17 05:44 09/04/17 05:44 Lab Results: I have reviewed the past 24 hour labs Labs: Blood cultures 1 of 2 growing gram-positive cocci. - Diagnostic Findings Procedure: Chest x-ray: report reviewed by me (Nothing acute)
[2017-06-04] MEDS: ALUMINUM/MAGNES/SIMETH MAX STR 30 ML UDCUP PO SCH ×5 (12:08→21:58)
[2017-06-04] MEDS: LABETALOL 200 MG TABLET PO SCH ×2 (12:41→21:58)
[2017-06-04] MEDS ORDERED: SCOPOLAMINE 1.5 MG PATCH TRANSDERM SCH (13:16)
[2017-06-04] MEDS: VANCOMYCIN INJ 1,250 MG in SODIUM CHLORIDE 0.9% 250 ML IV SCH (15:16)
[2017-06-04] MEDS: LANSOPRAZOLE ODT 30 MG TABLET PO SCH (21:58)
[2017-06-04] MEDS: ENOXAPARIN 40 MG/0.4 ML SYRINGE SUBCUT SCH (21:58)
[2017-06-04] MEDS: SERTRALINE 50 MG TABLET PEG SCH (21:58)
[2017-06-05] MEDS: PIPERACILLIN/TAZOBACTAM 3,375 MG in SODIUM CHLORIDE 0.9% 100 ML IV SCH ×2 (01:15→09:56)
[2017-06-05] MEDS: ALBUTEROL/IPRATROPIUM 3 ML NEB RESP TX SCH ×4 (01:59→20:14)
[2017-06-05] MEDS: VANCOMYCIN INJ 1,250 MG in SODIUM CHLORIDE 0.9% 250 ML IV SCH (02:35)
[2017-06-05] MEDS: ALUMINUM/MAGNES/SIMETH MAX STR 30 ML UDCUP PO SCH ×5 (02:36→18:03)
[2017-06-05 07:48] LABS: Hematocrit 36.3 VOL% (35.7-47.0); Hemoglobin 11.7 GM/DL (12.0-16.0); Immature Granulocytes % 0.4 %; Immature Granulocytes Absolute 0.03 #; Lymphocytes % 14.7 % (21.3-54.2); Mean Corpuscular HGB Conc 32.2 GM/DL (32-36); Mean Corpuscular Hemoglobin 27 PG (27-34); Mean Corpuscular Volume 83.3 FL (87-102); Mean Platelet Volume 10.4 FL (9.6-12.0); Monocytes # 0.1 10*3/uL (0.11-0.8); Neutrophils # 5.9 10*3/uL (1.4-7.4); Neutrophils % 82.9 % (38.7-73.9); Platelet Count 357 T/CUMM (130-400); Red Blood Count 4.36 MC/CUMM (3.8-5.5); Red Cell Distribution Width 14.5 % (9.3-17.3)
[2017-06-05 07:51] LABS: White Blood Count 7.1 T/CUMM (4-12)
[2017-06-05 08:23] LABS: Albumin 2.6 G/DL (3.4-5.0); Bilirubin,Total 0.5 MG/DL (0.2-1.0); Calcium 9.1 MG/DL (8.5-10.1); Osmolality,Calculated 291.1 MOS/KG (273-304); Potassium 4.3 MMOL/L (3.5-5.1); Total Protein 7.6 G/DL (6.4-8.3)
[2017-06-05 08:24] LABS: Phosphorous 3.5 MG/DL (2.5-4.9)
--- NOTE | 2017-06-05 09:04 | Nuclear Medicine Report ---
History: Repeated aspiration Date: 06/05/2017 Study: Nuclear medicine gastric emptying study Comparison exam: No previous Following the ingestion of 500 uCi technetium 99m sulfur colloid mixed with scrambled eggs, images document migration of radiotracer from stomach into small bowel. Gastric emptying curve was also generated. The stomach is 82% empty at 90 minutes. The half-time to empty measures between 55 and 61 minutes. Impression: Normal gastric emptying. No scintigraphic evidence of aspiration during the course of the study PROCEDURE INTERPRETED AT [facility] DEPARTMENT OF RADIOLOGY Final Report Signed by: Dr. Berta Bruno
[2017-06-05] MEDS: methylPREDNISolone SOD SUC 40 MG/1 ML VIAL IV SCH (09:57)
[2017-06-05] MEDS: ASPIRIN CHEW 81 MG TABLET PO SCH (09:57)
[2017-06-05] MEDS: LABETALOL 200 MG TABLET PO SCH (09:57)
[2017-06-05] MEDS: CARVEDILOL 25 MG TABLET PO SCH (09:57)
[2017-06-05] MEDS: LOSARTAN 25 MG TABLET PO SCH (09:58)
[2017-06-05] MEDS: LANSOPRAZOLE ODT 30 MG TABLET PO SCH (09:58)
--- NOTE | 2017-06-05 11:05 | Hospitalist Progress Note ---
Assessment and Plan - Time spent with patient Time spent with patient: Less than 30 minutes (1) Acute kidney injury Status: Acute Assessment and plan: 67-year-old -Portuguese female with history of hypertension, stroke, JAMEY, and GERD admitted by the hospitalist service on 06/02/17 with septic shock due to aspiration pneumonia with acute renal failure. Dr. Medina will see and examine patient and further recommendations to follow. Septic shock/leukocytosis/aspiration pneumonia--patient is being followed by pulmonary. Bronchoscopy revealed Klebsiella pneumoniae ESBL that is sensitive to Levaquin. Patient is currently on Zosyn and vancomycin. We will go ahead and switch to Levaquin. Patient currently has a normal white count and has been afebrile and her lactic acid has returned to normal. Patient underwent gastric emptying study today which was normal. Will consult dietitian to restart her tube feeds. Acute renal failure--patient's renal function is now normal. Current Visit: No (2) Hypertension Status: Chronic Current Visit: No (3) History of stroke Status: Chronic Current Visit: No (4) Aspiration pneumonia Status: Acute Current Visit: Yes (5) Obstructive sleep apnea Status: Acute Current Visit: Yes (6) GERD (gastroesophageal reflux disease) Status: Acute Current Visit: Yes (7) Septic shock Status: Acute Current Visit: Yes Hospitalist: Subjective Interval history: Patient is awake and alert and will nod her head to yes or no questions. She is nonverbal with PEG tube in place. She denies any pain or nausea. Exam - Constitutional Vitals: Period Temp Pulse Resp BP Sys/Shepard Pulse Ox Last 24 Hr 97.3 F-98.3 F 65-80 16-24 111-147/58-76 94-100 Exam: 67-year-old -Portuguese female, no acute distress, alert and nonverbal Chest clear CV regular rate and rhythm Abdomen obese, nontender, PEG tube intact and clean Extremities with mild pedal edema Results - Labs CBC & BMP: 06/05/17 07:33 06/05/17 07:33 Lab Results: I have reviewed the past 24 hour labs - Diagnostic Findings Procedure: X-ray: report reviewed by me (Gastric emptying study was normal with no evidence of aspiration.)
--- NOTE | 2017-06-05 13:51 | Pulmonology Progress Note ---
Pulmonary - PN: Subj Interval history: Scot Lion, [facility]-, acting as scribe for Dr. Erik Larson This is a 67-year-old fpc black female who we saw in pulmonary consultation on 06/03/2017. At that time, our impressions were: 1. Acute aspiration of gastric contents. Historically this may be a chronic problem for the past few months. On 06/03/2017 she was evaluated with fiberoptic bronchoscopy. See report. She had aspirated. 2. History of PEG feeding. 3. 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 4. Suspected sepsis. 5. Acute right lower lung infiltrate. Aspirate versus infection or both. 6. History of high blood pressure 7. Hyperlipidemia 8. See past history. 06/04/2017. Today's chest x-ray shows resolution of right lower lung infiltrate. On 06/03/2017 this patient was evaluated with fiberoptic bronchoscopy. There was evidence of aspiration bilaterally. Bronchoscopy specimens are showing a gram-positive cocci at this time. This is covered with antibiotics. Potassium is 5.2 and I am going to take the potassium the patient's drip with D5 normal saline. White count is dropped from 21,800-10,900 with 82 segs and 14 lymphs. H&H is 13.5/43.4. Creatinine has dropped from 1.60-1.00 with a BUN of 23. Total protein is 8.2 albumin is low at 2.4 and globulins are elevated at 5.4. Patient is a good bit of upper airway secretions and needs to be suctioned with a Yonker. On bronchoscopy it was noted that she had upper airway obstruction secondary to AP collapse of the oral and pharyngeal airways. 06/05/2017. Patient is more awake and alert this morning. She is still nonverbal , but will follow you with her eyes. Bronchoscopy cultures have grown Klebsiella pneumoniae. Antibiotic adjustments have been made per her attending. Vancomycin and Zosyn have been discontinued and she has been started on Levaquin. This is an DESTINY of less than 2. We have ordered a repeat chest x-ray for tomorrow. One of the 2 sets of blood cultures obtained at admission is growing gram-positive cocci. This is possibly contaminant. Final ID and sensitivities are pending. MRSA screen of the nares is negative. Bronchoscopy lavage showed no fungal elements on smear. This patient has a history of multiple old strokes. She was on no anticoagulation at admission. However, INR on 06/02/2017 was prolonged at 1.7. This has not been rechecked since that time. She is on Lovenox presently. Because of her prolongation in admission and the fact that she is on antibiotics, we will recheck her INR. Medications have been reviewed. We made no changes today. Labs been reviewed. White count is 7100 with 82.9% segs; H&H 11.7/36.3; platelet count 357,000; creatinine has improved to 1.00, BUN 34, electrolytes are normal Exam (Progress Note) - Constitutional Vitals: Period Temp Pulse Resp BP Sys/Shepard Pulse Ox Last 24 Hr 97.3 F-98.3 F 65-80 16-24 128-150/69-76 94-100 Exam: Chest is symmetrical with mild large airway congestion Heart no gallop Abdomen is nontender with positive bowel sounds Extremities nothing to suggest acute deep venous thrombophlebitis Psychiatric/neurologic unchanged Plan: Vancomycin and Zosyn have been discontinued. Levaquin has been started as per her attending. Repeat chest x-ray in the morning. Check INR today and tomorrow. See orders. Results - Labs CBC & BMP: 06/05/17 07:33 06/05/17 07:33
[2017-06-05] MEDS: LEVOFLOXACIN INJ 500 MG in PREMIX 1 EACH IV SCH (14:17)
[2017-06-05 14:31] LABS: INR 1.1; PT Patient Result 11.2 SECS
[2017-06-05] MEDS ORDERED: SKIN HEALING OINT (AQUAPHOR) 50 GM TUBE TOP PRN (15:33)
--- NOTE | 2017-06-05 18:52 | Sleep Medicine Consult ---
Assessment and Plan (1) Obstructive sleep apnea Status: Acute Assessment and plan: It is certainly possible that this patient has some form of sleep apnea, obstructive or central. However, she is profoundly debilitated and it would be very difficult to assess her. I do not think treatment would be of any meaningful benefit to her. Compliance with treatment is very poor in these types of patients debilitated by stroke or dementia and rather than transport her to a sleep facility for treatment and follow-up, I would recommend against further sleep evaluation. Thank you for the consult. Current Visit: Yes History of Present Illness Chief complaint: Sleep apnea History of present illness: Ms. John is a 67 year old female admitted with septic shock with probable aspiration. She is half-way bound and has had previous strokes. She is profoundly debilitated and basically noncommunicative. She is unable to answer any questions to me other than with grunts. She has required therapeutic bronchoscopy during this hospital stay. She has been moved from the ICU after treatment. There was a question raised of possible sleep apnea. I am unable to obtain any history regarding her sleep due to her current condition. Home Medications Medication Instructions Recorded Confirmed Type Sertraline [Zoloft] 50 mg PEG 199904/18/15 06/02/17 History Magnesium Hydroxide Susp [Milk of 30 ml PEG DAILY PRN 11/27/16 06/02/17 History Magnesia] Scopolamine 1.5 mg Patch 1 patch TRANSDERM Q3DAY 11/27/16 06/02/17 History [Transderm Scop 1.5 mg/72 hr Patch] cloNIDine TAB [Catapres Tab] 0.3 mg PEG TID 02/11/17 06/02/17 History Aspirin Chew Tab 81 mg PER TUBE 89905/25/17 06/02/17 History Omeprazole 20 mg PEG 0630 05/25/17 06/02/17 History Acetaminophen Tab [Tylenol Tab] 650 mg PEG Q4H PRN 06/02/17 06/02/17 History amLODIPine [Norvasc] 10 mg PEG 89906/02/17 06/02/17 History Allergies Allergy/AdvReac Type Severity Reaction Status Date / Time No Known Allergies Allergy Verified 06/02/17 15:41 Review of systems: Unable to obtain sleep history due to her current condition. Exam (Pulmonay) H&P - Constitutional Vitals: Period Temp Pulse Resp BP Sys/Shepard Pulse Ox Last 24 Hr 97.6 F-98.7 F 65-80 16-24 128-150/69-76 94-100 Exam: Patient is awake and responsive or grunts. HEENT notable for a crowded airway. Neck supple without adenopathy. Chest with bilateral rhonchi. Cardiac exam reveals a regular rhythm without murmur or gallop. Abdomen soft nontender with PEG tube in place. Extremities with minimal edema. Neurologically, she is very debilitated. She is awake but does not follow commands. Medical,Surgical,& Family Hx - Medical History Cardio: History of: Hypertension Psychological: History of: Depression Neurology: History of: Cerebrovascular Accident (CVA 1997,2002,2009), Vertigo No history of: Seizures HEENT: History of: Eye Problem (RIGHT EYE LID DROOP), Dental Problems (BLEEDING GUMS,HALLOTOSIS) Endocrine: History of: Dyslipidemia Rheumatology: History of;: Rheumatoid Arthritis Respiratory: History of: Respiratory Problems (SNORES) Genitourinary: History of: Recurring Urinary Tract Infections, Problems ( OCASSIONAL INCONTINENT OF URINE) Gastrointestinal: History of: GI Problems (PEG) Hematology: History of: Anemia - Surgical History Cardiac Surgeries: Patient Denies: Cardiac Catheterization Thoracic Surgeries: Patient denies;: Kidney (Renal Surgery), Lithotripsy, Nephrectomy Neurologic Surgeries: Patient denies: Neurologic Surgery Abdominal Surgeries: Surgical HX of: Abdominal Surgery, Cholecystectomy Reproductive Surgeries: Patient denies;: Cystoscopy, Genitourinary Surgery Orthopedic Surgeries: Patient denies;: Orthopedic Surgery - Family History Family History: Reports;: Family Cancer, Family Diabetes, Family Heart Disease, Family Hypertension, Family Stroke - Social History Smoking Status: Smoker, status unknown Frequency of Alcohol Use: None Type of Drug Use: None Results - Labs CBC & BMP: 06/05/17 07:33 06/05/17 07:33 Lab Results: I have reviewed the past 24 hour labs
[2017-06-06] MEDS: methylPREDNISolone SOD SUC 40 MG/1 ML VIAL IV SCH ×2 (00:04→09:14)
[2017-06-06] MEDS: ALUMINUM/MAGNES/SIMETH MAX STR 30 ML UDCUP PO SCH ×5 (00:04→15:47)
[2017-06-06] MEDS: CARVEDILOL 25 MG TABLET PO SCH ×2 (00:04→09:14)
[2017-06-06] MEDS: LANSOPRAZOLE ODT 30 MG TABLET PO SCH ×2 (00:04→09:14)
[2017-06-06] MEDS: LABETALOL 200 MG TABLET PO SCH ×2 (00:04→09:14)
[2017-06-06] MEDS: SERTRALINE 50 MG TABLET PEG SCH (00:04)
[2017-06-06] MEDS: ENOXAPARIN 40 MG/0.4 ML SYRINGE SUBCUT SCH (00:05)
[2017-06-06] MEDS: ALBUTEROL/IPRATROPIUM 3 ML NEB RESP TX SCH ×3 (00:43→13:04)
[2017-06-06 06:42] LABS: Hematocrit 35.6 VOL% (35.7-47.0); Hemoglobin 11.4 GM/DL (12.0-16.0); Immature Granulocytes % 0.4 %; Immature Granulocytes Absolute 0.02 #; Lymphocytes # 0.6 10*3/uL (1.4-4.0); Lymphocytes % 13.4 % (21.3-54.2); Mean Corpuscular Hemoglobin 26 PG (27-34); Mean Platelet Volume 10.8 FL (9.6-12.0); Monocytes # 0.1 10*3/uL (0.11-0.8); Monocytes % 2.9 % (1.7-12.7); Neutrophils % 83.3 % (38.7-73.9); Platelet Count 353 T/CUMM (130-400); Red Blood Count 4.34 MC/CUMM (3.8-5.5); Red Cell Distribution Width 13.9 % (9.3-17.3); White Blood Count 4.8 T/CUMM (4-12)
[2017-06-06 07:04] LABS: INR 1.1; PT Patient Result 11.4 SECS
--- NOTE | 2017-06-06 07:16 | XRay Report ---
Exam: XR chest 1V portable Date: 06/06/2017 4:00 AM Indication: Pneumonia Comparison: 06/04/2017 Technical: AP Findings: External cardiac leads are present. There is calcifications in tracheobronchial tree. Nasogastric tube has been removed. External cardiac leads are present. Previous cholecystectomy clips are present. No obvious effusions or consolidations present. The heart is normal in size. Impression: 1. Removal nasogastric tube 2. Scarring in the tracheobronchial airway and perihilar regions bilaterally. 3. No obvious consolidating pneumonic infiltrate present PROCEDURE INTERPRETED AT [facility] DEPARTMENT OF RADIOLOGY Final Report Signed by: Dr. Erik Morrow
--- NOTE | 2017-06-06 09:08 | Discharge Summary ---
Hospital Course - Hospital Course Hospital Course: 67-year-old -Serbian female with history of hypertension, stroke, JAMEY, GERD admitted by the hospitalist service on 06-17 with septic shock due to aspiration pneumonia with acute renal failure. Patient was followed by pulmonary and bronchoscopy revealed Klebsiella pneumonia ESBL that is sensitive to Levaquin. Patient seems to be feeling better, white count is normal, and she has been afebrile. She is awake and alert but is nonverbal which is her normal state. Patient underwent gastric emptying study that showed no evidence of aspiration. Tube feeds were restarted and she is tolerating these at goal rate today. Dr. Will from sleep medicine was consulted for her untreated sleep apnea. He felt with her profound debilitation it was very difficult to assess and he felt the treatment would not be any meaningful benefit to her. Patient also was uncontrolled hypertensive and her medicines were adjusted. New prescriptions were written for this. Patient will be transferred back to the assisted today with 1 week of Levaquin p.o. through her PEG tube and a prednisone taper. Physician at the assisted can follow-up. Care coordination, chart review, and completed discharge paperwork took approximately 35 minutes. - Time spent with patient Time with patient DS: Greater than 30 minutes Diagnosis - Discharge Diagnosis (1) Acute kidney injury Status: Resolved (2) Hypertension Status: Chronic (3) History of stroke Status: Chronic (4) Aspiration pneumonia Status: Resolved (5) Obstructive sleep apnea Status: Chronic (6) GERD (gastroesophageal reflux disease) Status: Chronic (7) Septic shock Status: Resolved Discharge Plan - Discharge Data Disposition: Disch/Xfer to Snf Condition at Discharge: Stable Discharge Diet: advance to your usual diet Activity: resume usual activities as tolerated Contact your physician if you experience:: Nausea/Vomiting, Shortness of breath - Discharge Medications New Carvedilol [Coreg] 25 mg PO BID #60 tablet Lansoprazole Odt Tab [Prevacid Solutab] 30 mg PO BID #60 tablet Losartan [Cozaar] 25 mg PO DAILY #30 tablet predniSONE TAB [PredniSONE] 40 mg PEG BID #27 tablet Labetalol Tab [Trandate Tab] 200 mg PO BID #60 tablet Levofloxacin Tab [Levaquin Tab] 500 mg PO DAILY #7 tablet Continue Sertraline [Zoloft] 50 mg PEG 2000 Scopolamine 1.5 mg Patch [Transderm Scop 1.5 mg/72 hr Patch] 1 patch TRANSDERM Q3DAY Omeprazole 20 mg PEG 0630 Aspirin Chew Tab 81 mg PER TUBE 0900 Magnesium Hydroxide Susp [Milk of Magnesia] 30 ml PEG DAILY PRN PRN Reason: Constipation Acetaminophen Tab [Tylenol Tab] 650 mg PEG Q4H PRN PRN Reason: Fever, Headache, Mild Pain Discontinued amLODIPine [Norvasc] 10 mg PEG 0900 cloNIDine TAB [Catapres Tab] 0.3 mg PEG TID - Follow Up or Referral Follow Up: your, [facility] [Other] - 2 Weeks - Forms/Instructions Exam - Constitutional Vitals: Period Temp Pulse Resp BP Sys/Shepard Pulse Ox Last 24 Hr 97.1 F-98.7 F 60-77 18-21 127-150/68-83 96-100 Exam: 67-year-old -Serbian female, no acute distress, alert and nonverbal Chest clear CV regular rate and rhythm Abdomen obese, nontender, PEG tube intact Extremities with mild pedal edema Discharge Results Procedures and tests throughout hospitalization: Pending Orders 06/02/17 19:11 Blood Culture Stat 06/03/17 12:01 Fungal Culture w/ Prep Stat Labs on day of discharge: Labs from last 24 hours 06/06/17 06/06/17 06/05/17 05:57 05:57 13:54 WBC 4.8 D RBC 4.34 Hgb 11.4 L Hct 35.6 L MCV 82.0 L MCH 26 L MCHC 32.0 RDW 13.9 Plt Count 353 MPV 10.8 Neut % (Auto) 83.3 H Lymph % (Auto) 13.4 L Ward % (Auto) 2.9 Eos % (Auto) 0.0 Baso % (Auto) 0.0 Neut # (Auto) 4.0 Lymph # (Auto) 0.6 L Ward # (Auto) 0.1 L Eos # (Auto) 0.0 Baso # (Auto) 0.0 Immature Gran % 0.4 Nucleated RBC % 0.0 Immature Gran # 0.02 Nucleated RBCs # 0.00 Immature Plt Fraction 0.0 INR 1.1 1.1 PT Patient/Control Mix 11.4 11.2 D Vancomycin Trough 06/05/17 13:51 WBC RBC Hgb Hct MCV MCH MCHC RDW Plt Count MPV Neut % (Auto) Lymph % (Auto) Ward % (Auto) Eos % (Auto) Baso % (Auto) Neut # (Auto) Lymph # (Auto) Ward # (Auto) Eos # (Auto) Baso # (Auto) Immature Gran % Nucleated RBC % Immature Gran # Nucleated RBCs # Immature Plt Fraction INR PT Patient/Control Mix Vancomycin Trough 27.3 H Preliminary micro results at discharge 06/02/17 19:11 Blood Culture - Preliminary Blood No growth at 3 days 06/02/17 19:11 Blood Culture - Preliminary Blood Gram Positive Cocci DS: Provider Date of admission: 06/02/17 20:16 Primary care physician: . No PCP Attending physician on admission: Elif Eller MD Consults: 06/02/17 20:46 Consult to Pharmacy [CONS] Routine Reason for Pharmacy Consult: Dose/Manage Vancomycin Dose/Manage Antibiotics Adjust Meds Renal Funct Consult to Physician [CONS] Routine Comment: aspiration pneumonia Consulting Provider: Erik Larson When should Consulting Provider be notified: Now Person Notified: aware 06/02/17 22:24 Consult to Physician [CONS] Routine Comment: Consulting Provider: Consult to Specialist Group: Nephrology Consult to Physician [CONS] Routine Comment: Consulting Provider: Consult to Specialist Group: Urology 06/04/17 09:47 Consult to Sleep Center [CONS] Routine Reason for Sleep Center: Sleep Center Physician Consult Comment: severe jamey 06/04/17 09:48 Consult to Dietitian [CONS] Routine Reason for Dietitian: TF-Initiate/Manage 06/05/17 11:04 Consult to Dietitian [CONS] Routine Reason for Dietitian: TF-Initiate/Manage Discharging clinician: LUDA Rosario Expected date of discharge: 06/06/17
[2017-06-06] MEDS: ASPIRIN CHEW 81 MG TABLET PO SCH (09:14)
[2017-06-06] MEDS: LOSARTAN 25 MG TABLET PO SCH (09:17)
--- NOTE | 2017-06-06 11:09 | Pulmonology Progress Note ---
Pulmonary - PN: Subj Interval history: Scot Lion, [facility]-, acting as scribe for Dr. Erik Larson This is a 67-year-old retirement black female who we saw in pulmonary consultation on 06/03/2017. At that time, our impressions were: 1. Acute aspiration of gastric contents. Historically this may be a chronic problem for the past few months. On 06/03/2017 she was evaluated with fiberoptic bronchoscopy. See report. She had aspirated. 2. History of PEG feeding. 3. 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 4. Suspected sepsis. 5. Acute right lower lung infiltrate. Aspirate versus infection or both. 6. History of high blood pressure 7. Hyperlipidemia 8. See past history. 06/04/2017. Today's chest x-ray shows resolution of right lower lung infiltrate. On 06/03/2017 this patient was evaluated with fiberoptic bronchoscopy. There was evidence of aspiration bilaterally. Bronchoscopy specimens are showing a gram-positive cocci at this time. This is covered with antibiotics. Potassium is 5.2 and I am going to take the potassium the patient's drip with D5 normal saline. White count is dropped from 21,800-10,900 with 82 segs and 14 lymphs. H&H is 13.5/43.4. Creatinine has dropped from 1.60-1.00 with a BUN of 23. Total protein is 8.2 albumin is low at 2.4 and globulins are elevated at 5.4. Patient is a good bit of upper airway secretions and needs to be suctioned with a Yonker. On bronchoscopy it was noted that she had upper airway obstruction secondary to AP collapse of the oral and pharyngeal airways. 06/05/2017. Patient is more awake and alert this morning. She is still nonverbal , but will follow you with her eyes. Bronchoscopy cultures have grown Klebsiella pneumoniae. Antibiotic adjustments have been made per her attending. Vancomycin and Zosyn have been discontinued and she has been started on Levaquin. This is an DESTINY of less than 2. We have ordered a repeat chest x-ray for tomorrow. One of the 2 sets of blood cultures obtained at admission is growing gram-positive cocci. This is possibly contaminant. Final ID and sensitivities are pending. MRSA screen of the nares is negative. Bronchoscopy lavage showed no fungal elements on smear. This patient has a history of multiple old strokes. She was on no anticoagulation at admission. However, INR on 06/02/2017 was prolonged at 1.7. This has not been rechecked since that time. She is on Lovenox presently. Because of her prolongation in admission and the fact that she is on antibiotics, we will recheck her INR. Medications have been reviewed. We made no changes today. Labs been reviewed. White count is 7100 with 82.9% segs; H&H 11.7/36.3; platelet count 357,000; creatinine has improved to 1.00, BUN 34, electrolytes are normal 06/06/2017. Patient was seen today along with Rubi Manzanares RN. It is noted that the patient is being discharged today back to the retirement. No overnight events were reported by nursing staff. No family was present. Patient is nonverbal. Medications have been reviewed. We made no changes. Labs been reviewed. White count is 4800 with 83.3% segs; H&H 11.4/35.6: Platelet count 353,000; INR 1.1; vancomycin trough yesterday 27.3 Exam (Progress Note) - Constitutional Vitals: Period Temp Pulse Resp BP Sys/Shepard Pulse Ox Last 24 Hr 97.1 F-98.7 F 60-96 18-21 127-150/68-83 96-100 Exam: Chest is symmetrical with mild large airway congestion Heart no gallop Abdomen is nontender with positive bowel sounds Extremities nothing to suggest acute deep venous thrombophlebitis Psychiatric/neurologic unchanged Plan: Your plans for discharge are noted. We will sign off. Please reconsult as needed. Results - Labs CBC & BMP: 06/06/17 05:57 06/05/17 07:33 Specialty Discharge - Follow Up or Referrals Follow up with: your, Michael [Other] - 2 Weeks
[2017-06-06 11:19] VITALS: BP 125/72
[2017-06-06] MEDS: LEVOFLOXACIN INJ 500 MG in PREMIX 1 EACH IV SCH (12:51)
== END 2017-06-06 16:00 | DRG 853 ==
LOC: EDUNIT# → EDBD → N.ED 15:22 → N.EDINP 20:16 → SUATTDRO 20:16 → N.ICU 21:28 → N.5E 06-04 13:15
PROVIDERS: ADMIT Internal Medicine; ATTEND Hospitalist